=== PATIENT | female | born 1975 | race Caucasian/White ===

== ENCOUNTER 2016-07-13 05:45 | Emergency (ER) | payer OTHER, MEDICAID ==
[~2016-07-13] VITALS: Ht 167.6 cm; Wt 62.6 kg
[~2016-07-13 05:45] MED LIST: CITA40TA22 PO; IBUP-1480 PO; MULT-634 PO; NAPR250T PO; NORCO5 PO; OMEP40CA PO; TRAM50TA92 PO; ZOLM2.5T7 PO
[2016-07-13 05:59] VITALS: BP 145/56; PULSE 90; RESP 18; TEMP 98.6; O2SAT 97
[2016-07-13] MEDS ORDERED: traMADol HCL HCL 50 MG TABLET (ULTRAM) PO ONE (06:30)
[2016-07-13 06:43] VITALS: BP 138/67; PULSE 87; RESP 18; TEMP 98.6; O2SAT 97
== END 2016-07-13 06:43 | disposition home or self-care (01) ==
LOC: SED 05:45
DX: M79.604 Pain in right leg (principal); G89.29 Other chronic pain; G80.9 Cerebral palsy, unspecified; Z88.5 Allergy status to narcotic agent; Z79.899 Other long term (current) drug therapy
CPT/HCPCS: 99283

== ENCOUNTER 2016-08-29 18:14 | Emergency (ER) | payer OTHER, MEDICAID ==
[~2016-08-29] VITALS: Ht 167.6 cm; Wt 64.4 kg
[~2016-08-29 18:14] MED LIST changes: -NAPR250T PO; -NORCO5 PO
[2016-08-29 18:22] VITALS: BP_SYST 99
[2016-08-29] MEDS ORDERED: KETOROLAC TROMETHAMINE 60 MG/2 ML VIAL IM ONE (18:45)
[2016-08-29 18:58] LABS: BASOPHILS # (AUTO) 0.1 K/uL (0.0-0.2); BASOPHILS % (AUTO) 0.8 % (0.0-2.0); EOSINOPHILS # (AUTO) 0.2 K/uL (0.0-0.4); EOSINOPHILS % (AUTO) 2.3 % (0.0-4.0); HEMATOCRIT 37.1 % (36-48); HEMOGLOBIN 12.9 g/dL (12.0-16.0); LYMPHOCYTES # (AUTO) 1.8 K/uL (1.0-5.5); LYMPHOCYTES % (AUTO) 24.9 % (20.5-51.5); MEAN CORPUSCULAR HEMOGLOBIN 31 pg (27-31); MEAN CORPUSCULAR HGB CONC 35 % (32-36); MEAN CORPUSCULAR VOLUME 88 fL (79.0-98.0); MONOCYTES # (AUTO) 0.8 K/uL (0.0-1.0); MONOCYTES % (AUTO) 10.3 % (1.7-9.3); NEUTROPHILS # (AUTO) 4.4 K/uL (1.8-7.7); NEUTROPHILS % (AUTO) 61.7 % (40.0-70.0); PLATELET COUNT (AUTO) 260 K/uL (130-430); RED BLOOD CELL COUNT(AUTO) 4.23 MIL/uL (4.2-6.2); RED CELL DISTRIBUTION WIDTH 11.8 % (9.0-15.0); WHITE BLOOD COUNT (AUTO) 7.4 K/uL (4.8-10.8)
[2016-08-29 19:09] LABS: CREATININE 0.86 mg/dL (0.55-1.30); POTASSIUM 3.6 mmol/L (3.5-5.1)
[2016-08-29 19:09] LABS: BILIRUBIN,URINE NEGATIVE (NEGATIVE); CLARITY/URINE SL CLOUDY (CLEAR); COLOR,URINE YELLOW (YELLOW); GLUCOSE,URINE NEGATIVE (NEGATIVE); KETONES,URINE NEGATIVE (NEGATIVE); LEUKOCYTE ESTERASE ,URINE TRACE (NEGATIVE); NITRITE, URINE POSITIVE (NEGATIVE); PH,URINE 6.5 (5.0-8.0); PROTEIN URINE NEGATIVE (NEGATIVE); UROBILINOGEN,URINE 0.2 (0.2-1.0)
[2016-08-29 19:14] LABS: ALBUMIN 4.6 g/dL (3.4-4.8); TOTAL BILIRUBIN 0.3 mg/dL (0.0-1.0); TOTAL PROTEIN, SERUM 7.7 g/dL (6.4-8.3)
[2016-08-29 19:20] LABS: BLOOD, URINE TRACE (NEGATIVE)
[2016-08-29 19:41] LABS: BACTERIA,URINE MANY /HPF (None Seen); RBC,URINE 0-3 /HPF (0-3)
[2016-08-29 19:42] VITALS: BP_SYST 112
[2016-08-29 19:42] LABS: MUCUS,URINE None Seen /LPF (None Seen)
== END 2016-08-29 19:42 | disposition home or self-care (01) ==
LOC: SED 18:14
DX: K52.9 Noninfective gastroenteritis and colitis, unspecified (principal); N39.0 Urinary tract infection, site not specified; G80.9 Cerebral palsy, unspecified; M19.90 Unspecified osteoarthritis, unspecified site; Z88.5 Allergy status to narcotic agent; Z88.0 Allergy status to penicillin
CPT/HCPCS: 36415; 74176; 80053; 81000; 81025; 85025; 87086; 87186; 96372; 99285; J1885; J7030

== ENCOUNTER 2016-10-06 23:57 | Inpatient (IN) | payer OTHER, MEDICAID ==
[~2016-10-06] VITALS: Ht 167.6 cm; Wt 63.0 kg
[~2016-10-06 23:57] MED LIST changes: +NAPR250T PO; +NORCO5 PO
[2016-10-07] VITALS: BP 127/61; PULSE 138; RESP 14; TEMP 101.4; O2SAT 99
--- NOTE | 2016-10-07 | NUR ---
Patient to ER bed 6 to gown for evaluation. Side rails up. Report given to ALONDRA PADILLA.
--- NOTE | 2016-10-07 00:10 | NUR ---
Patient alert and oriented x 3, BIB ambulance with complaints of body aches and pain x 2 hours and nausea and headache. No diarrhea or vomiting. Pain scale 8/10. Patient also has elevated temp 101.4 degrees Fahrenheit. No acute distress or SOB noted at this time.
--- NOTE | 2016-10-07 00:11 | NUR ---
Cooling measures started. Patient constantly complaining of body ache. Patient has cerebral palsy and needs assistance when turning and or urinating. Will continue to monitor.
--- NOTE | 2016-10-07 00:25 | NUR ---
ER Dr. Parks at bedside examining patient.
[2016-10-07] MEDS ORDERED: NS 1000 ML BAG IV ONE (00:30)
[2016-10-07] MEDS ORDERED: ONDANSETRON HCL 4 MG/2 ML VIAL IVP ONE (00:30)
[2016-10-07] MEDS ORDERED: KETOROLAC TROMETHAMINE 30 MG VIAL IVP ONE (00:30)
[2016-10-07 01:21] LABS: HEMATOCRIT 35.1 % (36-48); HEMOGLOBIN 11.7 g/dL (12.0-16.0); MEAN CORPUSCULAR HEMOGLOBIN 29 pg (27-31); MEAN CORPUSCULAR HGB CONC 33 % (32-36); MEAN CORPUSCULAR VOLUME 86 fL (79.0-98.0); PLATELET COUNT (AUTO) 202 K/uL (130-430); RED BLOOD CELL COUNT(AUTO) 4.06 MIL/uL (4.2-6.2); RED CELL DISTRIBUTION WIDTH 12.1 % (9.0-15.0); WHITE BLOOD COUNT (AUTO) 4.4 K/uL (4.8-10.8)
[2016-10-07 01:23] LABS: BILIRUBIN,URINE NEGATIVE (NEGATIVE); BLOOD, URINE 1+ (NEGATIVE); CLARITY/URINE SL CLOUDY (CLEAR); COLOR,URINE YELLOW (YELLOW); GLUCOSE,URINE NEGATIVE (NEGATIVE); KETONES,URINE NEGATIVE (NEGATIVE); LEUKOCYTE ESTERASE ,URINE TRACE (NEGATIVE); NITRITE, URINE POSITIVE (NEGATIVE); PH,URINE 6.5 (5.0-8.0); PROTEIN URINE NEGATIVE (NEGATIVE); UROBILINOGEN,URINE 0.2 (0.2-1.0)
--- NOTE | 2016-10-07 01:25 | NUR ---
Patient still complaining of headache and body pain. Temp still elevated at 101 degrees Fahrenheit. Heart rate elevated at 125. No acute distress or sOB noted. Will continue to monitor.
[2016-10-07] MEDS ORDERED: DIPHENHYDRAMINE INJ 50 MG/ML VIAL IVP ONE (01:30)
[2016-10-07] MEDS ORDERED: MORPHINE 2 MG/ML INJ. SYRINGE IVP ONE (01:30)
[2016-10-07 01:31] LABS: CALCIUM 8.2 mg/dL (8.4-11.0); CREATININE 0.76 mg/dL (0.55-1.30)
[2016-10-07 01:35] LABS: ALBUMIN 3.7 g/dL (3.4-4.8); TOTAL BILIRUBIN 0.5 mg/dL (0.0-1.0); TOTAL PROTEIN, SERUM 6.6 g/dL (6.4-8.3)
[2016-10-07 01:39] LABS: BACTERIA,URINE MANY /HPF (None Seen); MUCUS,URINE None Seen /LPF (None Seen); WBC,URINE 20-50 /HPF (0-3)
[2016-10-07 01:42] LABS: POTASSIUM 2.9 mmol/L (3.5-5.1)
[2016-10-07] MEDS ORDERED: POTASSIUM CHLORIDE 20 MEQ TAB.PRT.SR PO ONE ×2 (01:45→02:45)
[2016-10-07 01:51] LABS: BAND % (MANUAL) 5 % (0-6); BASOPHILS % (MANUAL) 0 % (0-2); EOSINOPHILS % (MANUAL) 1 % (0-7); LYMPHOCYTES % (MANUAL) 9 % (20-46); MONOCYTES % (MANUAL) 2 % (0-11)
[2016-10-07] MEDS ORDERED: LEVOFLOXACIN 500 MG/D5W 100 ML IV ONE (02:15)
[2016-10-07] MEDS ORDERED: ACETAMINOPHEN 325 MG TABLET PO ONE (02:15)
[2016-10-07] MEDS ORDERED: NAPR-690 PO (02:50)
[2016-10-07] MEDS ORDERED: CHOL50004 PO (02:51)
[2016-10-07] MEDS ORDERED: ONDANSETRON 4 MG ODT TAB PO ONE (03:00)
[2016-10-07] MEDS: KCL 20 mEq in NS 1000 mL 1,000 ML IV SCH ×2 (03:00→14:28)
[2016-10-07] MEDS ORDERED: POTASSIUM CHLORIDE 30 MEQ in NS 250 ML IV ONE (03:00)
[2016-10-07] MEDS ORDERED: ONDANSETRON HCL 4 MG/2 ML VIAL IVP PRN (03:00)
--- NOTE | 2016-10-07 03:05 | NUR ---
Patient will be admitted under the care of Dr. Rosa. Admitted to telemetry unit. Will go to room 125A. Belongings list completed. Summary report printed. Report will be given at bedside. 0316 Patient was transported to telemetry unit by 2 RNs via gurney without incident. Patient was in no acute distress or SOB upon transfer. Report given to ALONDRA Goodwin.
--- NOTE | 2016-10-07 03:19 | NUR ---
ADMIT NOTE Received pt from ER to the floor with a diagnosis of Sepsis, UTI. Admission process initiated. patient oriented to pain management, safety and call light-teach back done.
[2016-10-07 03:26] VITALS: BP 108/65; PULSE 128; RESP 18; TEMP 98.6; O2SAT 98
--- NOTE | 2016-10-07 03:30 | NUR ---
INITIAL NOTE PT. RECEIVED FROM ADMISSION NURSE, LORRIE, NO S/S OF SOB OR DISTRESS. PT. COMPLAINS OF HEAD AND ABDOMINAL PAIN AT THIS TIME. WILL ASSIST PT. TO A COMFORTABLE POSITION IN BED AND ADMINISTER NEXT DOSE OF PAIN MEDICATION WHEN DUE. PT. ALSO STATES SHE IS NAUSEOUS AT THIS TIME. WILL GIVE PT. SEVEN UP PER HER REQUEST AND ADMINISTER NEXT DOSE OF ZOFRAN ONCE AVAILABLE. WILL INITIATE IV FLUIDS ONCE AVAILABLE. IV ACCESS SITE HAS NO SIGNS OF INFILTRATION. PLAN OF CARE HAS BEEN DISCUSSED, PT. VERBALIZES UNDERSTANDING. WILL CONTINUE TO MONITOR FOR CHANGES AND MAKE PT. COMFORTABLE POSSIBLE. SAFETY AND FALL PRECAUTIONS IN PLACE, CALL LIGHT IN REACH, BED ALARM ON.
[2016-10-07] MEDS ORDERED: KCL 20 mEq in 100 mL (PREMIX) 100 ML IV ONE ×2 (04:42→04:46)
--- NOTE | 2016-10-07 05:08 | NUR ---
ROUNDS PT. RESTING IN BED. COMPLAINS OF NAUSEA AND PAIN. MEDICATIONS ARE NOT YET DUE FOR PRN DOSE. PT. GIVEN 7 UP, AND DRINKING TO HELP WITH NAUSEA. PROVIDED WITH A PILLOW PER PT. REQUEST. IV FLUIDS AND K LIZZ ARE NOW INFUSING WELL ORDERED. WILL CONT. TO MONITOR FOR CHANGES. SAFETY AND FALL PRECAUTIONS IN PLACE. CALL LIGHT IN REACH.
[2016-10-07] MEDS: MORPHINE 2 MG/ML INJ. SYRINGE IVP PRN ×2 (05:56→16:13)
--- NOTE | 2016-10-07 06:40 | NUR ---
CLOSING NOTE PT. RESTING IN BED WITH EYES CLOSED. CHEST RISE AND FALL NOTED. MORPHINE WAS GIVEN FOR PAIN ORDERED. PT. HAS NO FACIAL GRIMACING FOR PAIN AT THIS TIME. ALL NECESSARY NEEDS WERE MET. SAFETY AND FALL PRECAUTIONS WERE MAINTAINED. IV FLUIDS AND K LIZZ INFUSING WELL ORDERED. WILL ENDORSE CARE TO AM NURSE. CALL LIGHT IN REACH, BED IN LOWEST LOCKED POSITION.
[2016-10-07] MEDS ORDERED: ACETAMINOPHEN 325 MG TABLET PO PRN (07:45)
[2016-10-07 08:00] VITALS: BP 99/59; PULSE 111; RESP 17; TEMP 98.4; O2SAT 98
--- NOTE | 2016-10-07 08:00 | NUR ---
OPENING NOTE: RECEIVED REPORT FROM NIGHT NURSE. PATIENT IS RESTING COMFORTABLY IN BED. NO S/S OF DISTRESS OR SOB. PATIENT IS AWAKE AND ALERT. VITAL SIGNS WNL, ASSESSMENT COMPLETE. FAMILY AT BEDSIDE. CALL LIGHT IN REACH, BED IN LOWEST POSITION, AND WILL CONTINUE TO MONITOR.
--- NOTE | 2016-10-07 10:00 | NUR ---
NOTE: PATIENT IS RESTING COMFORTABLY IN BED. NO S/S OF DISTRESS OR SOB. PATIENT IS AWAKE AND ALERT, ABLE TO EXPRESS NEEDS, AND ASK FOR ASSISTANCE. CALL LIGHT IN REACH, BED IN LOWEST POSITION, AND WILL CONTINUE TO MONITOR.
[2016-10-07] MEDS: OMEPRAZOLE 20 MG CAPSULE.DR (PriLOSEC) PO SCH (10:13)
[2016-10-07] MEDS ORDERED: FIORCET PO PRN (11:30)
[2016-10-07 11:59] VITALS: BP 97/57; PULSE 108; RESP 16; TEMP 97.6; O2SAT 97
--- NOTE | 2016-10-07 12:00 | NUR ---
NOTE: PATIENT IS RESTING COMFORTABLY IN BED. NO S/S OF DISTRESS OR SOB. PATIENT IS AWAKE AND ALERT, ABLE TO EXPRESS NEEDS, AND ASK FOR ASSISTANCE. FAMILY AT BEDSIDE. CALL LIGHT IN REACH, BED IN LOWEST POSITION, AND WILL CONTINUE TO MONITOR.
[2016-10-07 12:06] VITALS: Ht 167.6 cm; Wt 63.0 kg
[2016-10-07] MEDS ORDERED: NAPROXEN 250 MG TABLET PO ONE (13:00)
--- NOTE | 2016-10-07 13:28 | NUR ---
CRITICAL RESULTS BLOOD CULTURE POSITIVE FOR GRAM NEGATIVE RODS. DR. PAYTON MADE AWARE AND SHE PUT IN SOME ORDERS.
[2016-10-07] MEDS ORDERED: GENTAMICIN 80 mg/100 mL NS 100 ML IV ONE (13:30)
[2016-10-07 13:47] LABS: BASOPHILS # (AUTO) 0.1 K/uL (0.0-0.2); BASOPHILS % (AUTO) 0.4 % (0.0-2.0); EOSINOPHILS % (AUTO) 0.1 % (0.0-4.0); HEMATOCRIT 32.7 % (36-48); HEMOGLOBIN 10.7 g/dL (12.0-16.0); LYMPHOCYTES # (AUTO) 0.4 K/uL (1.0-5.5); LYMPHOCYTES % (AUTO) 2.1 % (20.5-51.5); MEAN CORPUSCULAR HEMOGLOBIN 29 pg (27-31); MEAN CORPUSCULAR HGB CONC 33 % (32-36); MEAN CORPUSCULAR VOLUME 87 fL (79.0-98.0); MONOCYTES # (AUTO) 0.3 K/uL (0.0-1.0); MONOCYTES % (AUTO) 1.5 % (1.7-9.3); NEUTROPHILS # (AUTO) 18.4 K/uL (1.8-7.7); NEUTROPHILS % (AUTO) 95.9 % (40.0-70.0); PLATELET COUNT (AUTO) 192 K/uL (130-430); RED BLOOD CELL COUNT(AUTO) 3.74 MIL/uL (4.2-6.2); RED CELL DISTRIBUTION WIDTH 12.2 % (9.0-15.0); WHITE BLOOD COUNT (AUTO) 19.2 K/uL (4.8-10.8)
[2016-10-07 13:56] LABS: CALCIUM 7.6 mg/dL (8.4-11.0); CREATININE 1.11 mg/dL (0.55-1.30); POTASSIUM 3.8 mmol/L (3.5-5.1)
--- NOTE | 2016-10-07 14:11 | NUR ---
CONSULT ID GN SEPTICEMIA DR KINGSLEY [phone] S/W [facility] OFFICE @ [id number]
[2016-10-07] MEDS: traMADol HCL HCL 50 MG TABLET (ULTRAM) PO SCH ×2 (14:27→20:38)
--- NOTE | 2016-10-07 16:00 | NUR ---
NOTE: PATIENT IS RESTING COMFORTABLY IN BED. NO S/S OF DISTRESS OR SOB. PATIENT IS AWAKE AND ALERT, ABLE TO EXPRESS NEEDS, AND ASK FOR ASSISTANCE. FAMILY AT BEDSIDE. PATIENT HAS HAD HEADACHE ALL DAY WITH LITTLE RELIEF. CALL LIGHT IN REACH, BED IN LOWEST POSITION, AND WILL CONTINUE TO MONITOR.
[2016-10-07 16:47] VITALS: BP 100/58; PULSE 102; RESP 17; TEMP 97.9; O2SAT 97
[2016-10-07] MEDS: FIORCET PO PRN (18:17)
--- NOTE | 2016-10-07 18:33 | NUR ---
CLOSING NOTE: PATIENT IS RESTING COMFORTABLY IN BED. NO S/S OF DISTRESS OR SOB. PATIENT IS AWAKE AND ALERT, ABLE TO EXPRESS NEEDS, AND ASK FOR ASSISTANCE. CALL LIGHT IN REACH, BED IN LOWEST POSITION, AND WILL GIVE REPORT TO NIGHT NURSE.
[2016-10-07 19:39] VITALS: BP 109/66; PULSE 66; RESP 18; TEMP 99.1; O2SAT 99
--- NOTE | 2016-10-07 19:45 | NUR ---
INITIAL NOTE SEEN PT SITTING UP IN BED, A/A/O X3, NO S/S OF SOB OR DISTRESS NOTED. VITAL SIGNS STABLE, AFEBRILE. IV TO THE RT HAND WITH ORDERED IVF INFUSING WELL. IV GAUGE 20. NO SIGNS OR SYMPTOMS OF INFECTION NOTED ON IV SITE. PLAN OF CARE HAS DISCUSSED WITH PT. VERBALIZES UNDERSTANDING. DENIES ANY PAIN AT THIS TIME. INSTRUCTED PT ON THE USE OF CALL LIGHT TO CALL FOR ANY NEED TO ASSIST. PT VERBALIZED UNDERSTANDING. BED LOCKED AND IN LOW POSITION, BED ALARM ON, SIDE RAILS UP X3. CALL LIGHT WITHIN REACH. WILL CONTINUE TO MONITOR FOR ANY CHANGES..
[2016-10-07] MEDS: NAPROXEN 250 MG TABLET PO SCH (20:39)
--- NOTE | 2016-10-07 20:43 | NUR ---
NOTES; SCHEDULED PO MEDICATION ADMINISTERED. PT TOLERATED MEDS WELL. WILL CONTINUE TO MONITOR.
[2016-10-07] MEDS ORDERED: NAPROXEN 250 MG TABLET PO SCH (21:00)
--- NOTE | 2016-10-07 22:30 | NUR ---
NOTES; AT BEDSIDE VISITING. NO APPARENT DISTRESS NOTED; DENIES ANY PAIN AT THIS TIME. SAFETY MEASURES IN PROGRESS.
[2016-10-07] MEDS: LEVOFLOXACIN 500 MG/D5W 100 ML IV SCH (22:56)
--- NOTE | 2016-10-07 23:10 | NUR ---
NOTES; ASSISTED PT TO THE BATH ROOM. PT VOIDED FREELY. ASSISTED BACK TO BED. GAIT UNSTEADY. REMINDED PT TO USE CALL LIGHT TO CALL FOR ANY NEED TO ASSIST. PT VERBALIZED UNDERSTANDING. SAFETY MEASURES IN PROGRESS.
--- NOTE | 2016-10-08 00:30 | NUR ---
NOTES; PT IS AWAKE, WATCHING MOVIE ON HER !PAD. NO APPARENT DISTRESS NOTED. SAFETY MEASURES IN PROGRESS. AT BEDSIDE WITH GOOD SUPPORT.
[2016-10-08 00:33] VITALS: BP 100/60; PULSE 73; RESP 20; TEMP 98.4; O2SAT 94
--- NOTE | 2016-10-08 00:33 | NUR ---
MEDICATION; PT ID BAND SCANNED, SCHEDULED MEDS SCANNED AND ADMINISTERED TO PT. LATER REALIZED MEDS SCANNED WAS NOT ENTERED. Addendum: 10/09/16 at 0035 by Doris Humphrey LVN WRONG TIME ENTRY
[2016-10-08] MEDS: KCL 20 mEq in NS 1000 mL 1,000 ML IV SCH ×3 (02:08→22:00)
[2016-10-08] MEDS: FIORCET PO PRN (02:36)
--- NOTE | 2016-10-08 02:38 | NUR ---
NOTES; FIORICET 2 TABS PO ADMINISTERED FOR 7/10 SEVERE HEADACHE.
--- NOTE | 2016-10-08 03:36 | NUR ---
NOTES; DENIES ANY PAIN AT THIS TIME. PT STATED EFFECTIVE PAIN MEDICATION. AT BEDSIDE WITH GOOD SUPPORT.
--- NOTE | 2016-10-08 05:00 | NUR ---
NOTES; ASSISTED PT TO THE BATHROOM. PT VOIDED FREELY. ASSISTED BACK TO BED. GAIT UNSTEADY. REMINDED PT TO USE CALL LIGHT TO CALL FOR ANY NEED TO ASSIST. PT VERBALIZED UNDERSTANDING. SAFETY MEASURES IN PROGRESS.
[2016-10-08 05:59] VITALS: BP 101/63; PULSE 70; RESP 18; TEMP 97.9; O2SAT 94
[2016-10-08 06:50] LABS: CALCIUM 7.9 mg/dL (8.4-11.0); CREATININE 0.69 mg/dL (0.55-1.30); POTASSIUM 4.2 mmol/L (3.5-5.1)
--- NOTE | 2016-10-08 06:52 | NUR ---
NOTES; RESTING QUIETLY, EASILY AROUSED. NO ACUTE DISTRESS NOTED. DENIES ANY PAIN AT THIS TIME. ALL NEEDS ATTENDED. SAFETY MEASURES MAINTAINED.
[2016-10-08 06:57] LABS: BASOPHILS % (AUTO) 0.2 % (0.0-2.0); EOSINOPHILS # (AUTO) 0.1 K/uL (0.0-0.4); EOSINOPHILS % (AUTO) 0.8 % (0.0-4.0); HEMATOCRIT 32.1 % (36-48); HEMOGLOBIN 10.7 g/dL (12.0-16.0); LYMPHOCYTES # (AUTO) 0.6 K/uL (1.0-5.5); LYMPHOCYTES % (AUTO) 5.2 % (20.5-51.5); MEAN CORPUSCULAR HEMOGLOBIN 29 pg (27-31); MEAN CORPUSCULAR HGB CONC 33 % (32-36); MEAN CORPUSCULAR VOLUME 88 fL (79.0-98.0); MONOCYTES # (AUTO) 0.6 K/uL (0.0-1.0); NEUTROPHILS # (AUTO) 10.2 K/uL (1.8-7.7); NEUTROPHILS % (AUTO) 88.8 % (40.0-70.0); PLATELET COUNT (AUTO) 166 K/uL (130-430); RED BLOOD CELL COUNT(AUTO) 3.65 MIL/uL (4.2-6.2); RED CELL DISTRIBUTION WIDTH 12.4 % (9.0-15.0)
[2016-10-08 07:02] LABS: WHITE BLOOD COUNT (AUTO) 11.6 K/uL (4.8-10.8)
--- NOTE | 2016-10-08 07:28 | NUR ---
HANDOFF REPORT WITH NOC NURSE. PATIENT NEEDS FREQUENT ASSIST TO TOILET AND RETURN TO BED. WILL DISCUSS WITH METAL FITTER FOR DAY SHIFT.
--- NOTE | 2016-10-08 09:20 | NUR ---
Patient continues to sleep through this rounds. Was also sleeping on handoff rounds.
--- NOTE | 2016-10-08 10:29 | NUR ---
Rounds to patient . Sleeping at this time.
[2016-10-08 11:15] VITALS: BP 90/60; PULSE 69; RESP 16; TEMP 97.3; O2SAT 99
[2016-10-08] MEDS: OMEPRAZOLE 20 MG CAPSULE.DR (PriLOSEC) PO SCH (11:38)
[2016-10-08] MEDS: NAPROXEN 250 MG TABLET PO SCH ×3 (11:38→21:40)
[2016-10-08] MEDS: traMADol HCL HCL 50 MG TABLET (ULTRAM) PO SCH ×4 (11:39→21:40)
--- NOTE | 2016-10-08 12:26 | NUR ---
ROUNDS TO PATIENT. ASSIST TO AND FROM BATHROOM. DAUGHTER AT BEDSIDE. SPOUSE DEPARTED.
[2016-10-08] MEDS ORDERED: KETOROLAC TROMETHAMINE 15 MG VIAL IVP ONE (14:30)
--- NOTE | 2016-10-08 14:34 | NUR ---
Rounds to patient. Request for something for headache. When carl brought, pt md at bedside says it is not working. She stopped med. Wasted med with charge nurse. Pending toradol order from MD. MD also request verify antibiotic.
--- NOTE | 2016-10-08 14:36 | NUR ---
given update on antibiotic gentamycin given 10/07 at 1427 by Yasmine Rock.
[2016-10-08 16:04] VITALS: BP 99/63; PULSE 78; RESP 20; TEMP 98.3; O2SAT 97
--- NOTE | 2016-10-08 16:51 | NUR ---
Patient talking on cell phone. Request for additional pain meds. Will monitor.
[2016-10-08 19:50] VITALS: BP 109/65; PULSE 76; RESP 18; TEMP 96.9; O2SAT 99
--- NOTE | 2016-10-08 20:00 | NUR ---
NOTES; SEEN PT SITTING UP IN BED, ON HER CELL PHONE. A/A/O X4, NO S/S OF SOB OR DISTRESS NOTED. VITAL SIGNS STABLE, AFEBRILE. PT C/O IV SITE HURTING. NEW IV TO BE RESTARTED. NO PLAN OF CARE HAS DISCUSSED WITH PT. VERBALIZES UNDERSTANDING. DENIES ANY PAIN AT THIS TIME. INSTRUCTED PT ON THE USE OF CALL LIGHT TO CALL FOR ANY NEED TO ASSIST. PT VERBALIZED UNDERSTANDING. BED LOCKED AND IN LOW POSITION, BED ALARM ON, SIDE RAILS UP X3. CALL LIGHT WITHIN REACH. WILL CONTINUE TO MONITOR FOR ANY CHANGES..
--- NOTE | 2016-10-08 20:10 | NUR ---
NOTES; ASSISTED PT TO THE BATHROOM, VOIDED FREELY. PT HAD X1 BM ALSO. PT STATED SHE HAD JUST STARTED HER MENSES. DISPOSABLE UNDERWEAR AND SANITARY PAD PROVIDED. ASSISTANCE ASSISTANCE WITH SANITARY PADS OFFERED DUE TO PT HX OF CEREBRAL PALSY WITH UNSTEADY HAND AND GAIT. PT REFUSED ASSISTANCE. ASSISTED BACK TO BED. SAFETY MEASURES IN PROGRESS. WILL CONTINUE TO MONITOR.
--- NOTE | 2016-10-08 20:15 | NUR ---
NOTES; RESTARTED NEW IV ON THE RT FOREARM, GAUGE 22. ORDERED IVF RESUMED. PT TOLERATED IV INSERTION WELL. OLD IV REMOVED WITH CATHETER TIP INTACT. DRESSING APPLIED.
[2016-10-08] MEDS: LACTOBACILLUS RHAMNOSUS GG 1 CAP CAPSULE PO SCH ×2 (21:00→21:40)
[2016-10-08] MEDS: LEVOFLOXACIN 500 MG/D5W 100 ML IV SCH (21:55)
[2016-10-08] MEDS: GENTAMICIN SULFATE 400 MG in NS 100 ML IV SCH (21:56)
--- NOTE | 2016-10-08 22:30 | NUR ---
NOTES; OT C/O NEW IV SITE HURTING. PT REQUESTING IV TO BE REMOVED. NO REDNESS NOTED ON IV SITE. RESTARTED NEW IV ON THE RT FOREARM,. GAUGE 22. ORDERED IVF RESUMED. OLD IV ON THE RT FOREARM REMOVED WITH CATHETER TIP INTACT. DRESSING APPLIED. NO BLEEDING NOTED. SAFETY MEASURES IN PROGRESS.
[2016-10-09] VITALS: BP 112/70; PULSE 72; RESP 17; TEMP 97.2; O2SAT 99
[2016-10-09] MEDS: FIORCET PO PRN ×2 (00:22→13:52)
--- NOTE | 2016-10-09 00:25 | NUR ---
NOTES; FIORICET 2TABS PO ADMINISTERED FOR 8 HEADACHE. WILL CONTINUE TO MONITOR.
--- NOTE | 2016-10-09 00:35 | NUR ---
MEDICATION; PT ID BAND SCANNED, SCHEDULED MEDS SCANNED AND ADMINISTERED TO PT. LATER REALIZED MEDS SCANNED WAS NOT ENTERED.
--- NOTE | 2016-10-09 01:22 | NUR ---
NOTES; PT STATED EFFECTIVE PAIN MEDICATION. SAFETY MEASURES IN PROGRESS.
[2016-10-09 04:00] VITALS: BP 119/75; PULSE 62; RESP 18; TEMP 97.2; O2SAT 100
--- NOTE | 2016-10-09 04:00 | NUR ---
NOTES; RESTING QUIETLY, EASILY AROUSED. NO ACUTE DISTRESS NOTED. DENIES ANY PAIN AT THIS TIME. ALL NEEDS ATTENDED. SAFETY MEASURES MAINTAINED.
--- NOTE | 2016-10-09 06:00 | NUR ---
NOTES; RESTING QUIETLY, EASILY AROUSED. NO ACUTE DISTRESS NOTED. DENIES ANY PAIN AT THIS TIME. ALL NEEDS ATTENDED. SAFETY MEASURES MAINTAINED.
[2016-10-09 06:28] LABS: CALCIUM 8.1 mg/dL (8.4-11.0); CREATININE 0.81 mg/dL (0.55-1.30)
[2016-10-09 06:31] LABS: EOSINOPHILS # (AUTO) 0.2 K/uL (0.0-0.4); LYMPHOCYTES # (AUTO) 1.1 K/uL (1.0-5.5); LYMPHOCYTES % (AUTO) 12.7 % (20.5-51.5)
[2016-10-09 06:42] LABS: BASOPHILS % (AUTO) 0.4 % (0.0-2.0); EOSINOPHILS % (AUTO) 1.9 % (0.0-4.0); HEMATOCRIT 32.7 % (36-48); HEMOGLOBIN 10.8 g/dL (12.0-16.0); MEAN CORPUSCULAR HEMOGLOBIN 29 pg (27-31); MEAN CORPUSCULAR HGB CONC 33 % (32-36); MEAN CORPUSCULAR VOLUME 89 fL (79.0-98.0); MONOCYTES # (AUTO) 0.8 K/uL (0.0-1.0); MONOCYTES % (AUTO) 8.9 % (1.7-9.3); NEUTROPHILS # (AUTO) 6.7 K/uL (1.8-7.7); NEUTROPHILS % (AUTO) 76.1 % (40.0-70.0); PLATELET COUNT (AUTO) 152 K/uL (130-430); RED BLOOD CELL COUNT(AUTO) 3.68 MIL/uL (4.2-6.2); WHITE BLOOD COUNT (AUTO) 8.8 K/uL (4.8-10.8)
--- NOTE | 2016-10-09 08:00 | NUR ---
AM Initial Notes Pt aaox4 with cerebral palsy. No complaints of pain or discomfort. No sob, difficulty breathing or distress noted. playground monitor in place. Pt on bedrest but may get up for BRP with assist. Weak gait noted. Educated about fall and safety precautions. Encouraged to call for assistance. Call light within reach. Will monitor.
[2016-10-09] MEDS: NAPROXEN 250 MG TABLET PO SCH ×2 (09:22→20:08)
[2016-10-09] MEDS: LACTOBACILLUS RHAMNOSUS GG 1 CAP CAPSULE PO SCH ×2 (09:22→20:09)
[2016-10-09] MEDS: OMEPRAZOLE 20 MG CAPSULE.DR (PriLOSEC) PO SCH (09:22)
[2016-10-09] MEDS: traMADol HCL HCL 50 MG TABLET (ULTRAM) PO SCH ×3 (09:22→20:08)
--- NOTE | 2016-10-09 09:40 | NUR ---
Physical Therapy Pt ambulating in hallway with therapist. Weak and unsteady gait noted.
--- NOTE | 2016-10-09 10:20 | NUR ---
Rounds Pt asleep but easily awakened. Mild pain noted but feels comfortable. No distress noted. Encouraged to call for assistance. Call light within reach. inside room. Will monitor.
[2016-10-09] MEDS: KCL 20 mEq in NS 1000 mL 1,000 ML IV SCH ×2 (11:04→20:08)
[2016-10-09 12:05] VITALS: BP 116/71; PULSE 63; RESP 17; TEMP 97.7; O2SAT 97
--- NOTE | 2016-10-09 12:35 | NUR ---
Rounds Pt eating lunch. No significant changes noted. Kept comfortable. Encouraged to call for assistance.
--- NOTE | 2016-10-09 13:54 | NUR ---
Headache Pt complaints of headache 12/20. Medicated with Fioricet 2 tabs. Kept comfortable. Educated about fall and safety precautions due to medication administered. Bed alarm armed. Pt verbalized understanding.
--- NOTE | 2016-10-09 14:30 | NUR ---
Dr. Shelley RAE doing rounds. Plan of care discussed.
--- NOTE | 2016-10-09 14:57 | NUR ---
Neuro Consult: Dr Dunne Consult was called, BERNARDA PETERSON persistent headache
--- NOTE | 2016-10-09 14:59 | NUR ---
Rounds Pt awake complaints of headache never completely went away. Dr. Rosa aware of headache. Medicated with scheduled 1500 Ultram. Will monitor.
--- NOTE | 2016-10-09 15:06 | NUR ---
Additional note Educated patient about fall and safety. Encouraged to call for assistance. Bed alarm armed.
--- NOTE | 2016-10-09 15:19 | NUR ---
Radiology Pt left floor via w/c to radiology department for CT scan of head/brain. No distress noted.
--- NOTE | 2016-10-09 16:19 | NUR ---
Rounds Pt asleep. No signs of facial grimacing for pain or discomfort. No distress noted. Call light within reach. will monitor.
[2016-10-09 16:40] VITALS: BP 117/73; PULSE 64; RESP 18; TEMP 96.3; O2SAT 100
--- NOTE | 2016-10-09 18:30 | NUR ---
Closing notes Pt awake resting in bed finishing up with her dinner. Complaints of mild headache but feels comfortable at this time. No distress noted. Encouraged to call for assistance. Will endorse care to incoming nurse.
--- NOTE | 2016-10-09 20:00 | NUR ---
Initial Notes Patient alert and oriented, able to make needs known. Patient denies pain at this time. No SOB noted, room air. No s/s of nausea/vomiting at this time. IV site patent, flushes well, infusing fluids as ordered. Goal of pain management, stability and safety this shift. Call light within reach. Will continue to monitor.
[2016-10-09] MEDS: LEVOFLOXACIN 500 MG/D5W 100 ML IV SCH (20:08)
[2016-10-09 20:12] VITALS: BP 111/72; PULSE 78; RESP 18; TEMP 96.6; O2SAT 97
[2016-10-09] MEDS: GENTAMICIN SULFATE 400 MG in NS 100 ML IV SCH (21:47)
--- NOTE | 2016-10-09 22:20 | NUR ---
Notes Patient resting in bed, recently had a shower. Denies pain at this time. No SOB noted. IV site patent, flushes well, infusing fluids as ordered. Call light within reach. Will continue to monitor.
[2016-10-10] VITALS (7 sets, daily range): BP systolic 108–124; BP diastolic 64–73; PULSE 64–78; RESP 15–18; TEMP 97–98; O2SAT 98–100
--- NOTE | 2016-10-10 00:05 | NUR ---
Notes Patient sleeping at this time. Recently medicated with pain medicine. Afebrile. IV site patent, flushes well, infusing fluids as ordered. Safety precautions maintained. Call light within reach. Will continue to monitor.
[2016-10-10] MEDS: FIORCET PO PRN (01:49)
--- NOTE | 2016-10-10 02:10 | NUR ---
Notes Patient resting in bed. Denies pain at this time. No SOB noted. IV site patent, flushes well, infusing fluids as ordered. Call light within reach. Will continue to monitor.
[2016-10-10] MEDS: MORPHINE 2 MG/ML INJ. SYRINGE IVP PRN ×2 (03:17→10:36)
--- NOTE | 2016-10-10 04:05 | NUR ---
Notes Patient sleeping at this time. Afebrile. IV site patent, flushes well, infusing fluids as ordered. Safety precautions maintained. Call light within reach. Will continue to monitor.
--- NOTE | 2016-10-10 06:38 | NUR ---
Closing Notes Patient denies pain at this time. No SOB noted, room air. No s/s of nausea/vomiting at this time. IV site patent, flushes well, infusing fluids as ordered. Goal of pain management, stability and safety met. Call light within reach. Will continue to monitor.
--- NOTE | 2016-10-10 07:23 | NUR ---
MADE A FOLLOW UP CONSULT TO THE NEUROLOGIST, DR HOLGUIN, RE: PERSISTENT SNEED. SPOKE TO MATT
--- NOTE | 2016-10-10 08:00 | NUR ---
AM Initial Notes Pt aaox4 with history of cerebral palsy. Complaints of pain and discomfort to right lower back. No sob, difficulty breathing or distress noted. nitro worker in place. IV to right forearm #22g patient with IV fluid infusing. Educated about fall and safety precautions. Bed alarm armed. Encouraged to call for assistance. Call light within reach. Will monitor.
[2016-10-10] MEDS: traMADol HCL HCL 50 MG TABLET (ULTRAM) PO SCH ×2 (08:20→15:47)
[2016-10-10] MEDS: LACTOBACILLUS RHAMNOSUS GG 1 CAP CAPSULE PO SCH (08:20)
[2016-10-10] MEDS: OMEPRAZOLE 20 MG CAPSULE.DR (PriLOSEC) PO SCH (08:20)
[2016-10-10] MEDS: NAPROXEN 250 MG TABLET PO SCH (08:21)
--- NOTE | 2016-10-10 10:30 | NUR ---
Back Pain Pt complaints of back pain 9/10 after ambulating. Informed RN for medication administration.
[2016-10-10] MEDS: KCL 20 mEq in NS 1000 mL 1,000 ML IV SCH (10:36)
--- NOTE | 2016-10-10 10:46 | NUR ---
Education Pt medicated with Morphine 2mg IVP for pain. Re-educated patient about fall and safety. Bed alarm armed and with 3 rails up. Encouraged to call for assistance. Call light within reach.
--- NOTE | 2016-10-10 11:45 | NUR ---
Rounds Pt asleep. No signs of facial grimacing for pain or discomfort. No distress noted. Call light within reach. Bed alarm armed. Will monitor.
--- NOTE | 2016-10-10 12:10 | NUR ---
Dr. Shelley RAE doing rounds. Plan of care discussed.
--- NOTE | 2016-10-10 14:30 | NUR ---
Rounds Pt asleep. No significant changes noted. Call light within reach. Bed alarm armed with three side rails up. Will monitor.
--- NOTE | 2016-10-10 15:52 | NUR ---
Rounds Assisted patient to restroom for BRP. Returned to bed and kept comfortable. Re-educated about fall and safety precautions. Medicated with scheduled Ultram.
[2016-10-10] MEDS ORDERED: LEVO500T20 PO (16:11)
--- NOTE | 2016-10-10 16:55 | NUR ---
Rounds Pt asleep. No significant changes noted. Will monitor.
--- NOTE | 2016-10-10 17:50 | NUR ---
Discharge Discharge patient with . Transitional care instructions, handout and prescription for Levaquin explained and given. Verbalized understanding. D/C IV and dressing applied. Vital signs stable. Pt left floor via w/c to private vehicle. No distress noted.
== END 2016-10-10 17:50 | disposition home or self-care (01) | DRG 872 ==
LOC: SED 23:57 → STU 10-07 02:55 → SMU 10-09 15:22
PROVIDERS: ADMIT Internal Medicine; ATTEND Internal Medicine
DX: A41.50 Gram-negative sepsis, unspecified (principal); N12 Tubulo-interstitial nephritis, not specified as acute or chronic; E87.6 Hypokalemia; G80.9 Cerebral palsy, unspecified; G89.4 Chronic pain syndrome; G43.829 Menstrual migraine, not intractable, without status migrainosus; B96.20 Unspecified Escherichia coli [E. coli] as the cause of diseases classified elsewhere; Z88.6 Allergy status to analgesic agent; Z88.0 Allergy status to penicillin
CPT/HCPCS: 36415; 70450-TC; 71010; 76770; 80048; 80053; 80170-TC; 81000-TC; 83605; 83735-TC; 85007; 85025; 85027; 87040-TC; 87086; 87186-TC; 93005; 96361; 96365; 96374; 96375; 97116-GP; 99285; J1200; J1580; J1885; J1956; J2270; J2405; J3480; J7030; J7050; Q0162

== ENCOUNTER 2016-11-01 16:42 | Emergency (ER) | payer OTHER, MEDICAID ==
[2016-10-07 12:06] VITALS: Ht 167.6 cm; Wt 61.2 kg
[~2016-11-01] VITALS: Ht 167.6 cm; Wt 61.2 kg
[~2016-11-01 16:42] MED LIST changes: +CHOL50004 PO; +LEVO500T20 PO; +NAPR-690 PO
[2016-11-01 16:44] VITALS: BP 116/78; PULSE 107; RESP 18; TEMP 98.3; O2SAT 98
--- NOTE | 2016-11-01 16:51 | NUR ---
Patient to ER bed 07 to gown for evaluation. Side rails up. Report given to Yanna
--- NOTE | 2016-11-01 16:55 | NUR ---
Patient is stable accompanied with boyfriend. Patient states that she has a headache, sore throat and stuffy nose since yesterday. Denies any fever. Lungs are clear bilaterally. No other complaints/injuries per patient or as noted.
[2016-11-01] MEDS ORDERED: PREDNISONE 20 MG TABLET PO ONE (17:15)
[2016-11-01] MEDS ORDERED: KETOROLAC TROMETHAMINE 60 MG/2 ML VIAL IM ONE (17:15)
--- NOTE | 2016-11-01 17:16 | NUR ---
JAYLEEN Hdz at bedside
[2016-11-01 17:40] VITALS: BP 112/74; PULSE 82; RESP 18; TEMP 98.3; O2SAT 98
--- NOTE | 2016-11-01 17:40 | NUR ---
Patient given written and verbal discharge instructions and verbalizes understanding. ER MD discussed with patient the results and treatment provided. Patient in stable condition. ID arm band removed. Rx of Tessalon Perles, Motrin, Prednisone, Fluticasone Propionate given. Patient educated on pain management and to follow up with PMD in 48 hours. Pain Scale 3/10 Opportunity for questions provided and answered.
== END 2016-11-01 17:40 | disposition home or self-care (01) ==
LOC: SED 16:42
DX: R51 Headache (principal); R09.81 Nasal congestion; R05 Cough; Z88.5 Allergy status to narcotic agent; Z88.0 Allergy status to penicillin; G80.9 Cerebral palsy, unspecified
CPT/HCPCS: 96372; 99283; J1885; J7512

== ENCOUNTER 2017-01-12 21:40 | Emergency (ER) | payer OTHER, MEDICAID ==
[~2017-01-12] VITALS: Ht 167.6 cm; Wt 62.6 kg
[~2017-01-12 21:40] MED LIST changes: -CITA40TA22 PO; -IBUP-1480 PO; -MULT-634 PO; -NAPR250T PO; -NORCO5 PO; -ZOLM2.5T7 PO
[2017-01-12 22:05] VITALS: BP_SYST 130
[2017-01-13 00:37] VITALS: BP_SYST 132
== END 2017-01-13 00:37 | disposition home or self-care (01) ==
LOC: SED 21:40
DX: L25.9 Unspecified contact dermatitis, unspecified cause (principal); G80.9 Cerebral palsy, unspecified; Z88.5 Allergy status to narcotic agent; Z88.0 Allergy status to penicillin
CPT/HCPCS: 99284

== ENCOUNTER 2018-10-13 20:19 | Emergency (ER) | payer OTHER, MEDICAID ==
[~2018-10-13] VITALS: Ht 167.6 cm; Wt 62.1 kg
[2018-10-13 20:28] VITALS: BP_SYST 132
--- NOTE | 2018-10-13 22:30 | NUR ---
Note christopher in EDM - 10/13/18 at 2308 by SDEDAFJ Pt vrought by self, A&Ox4, pt presents to ER with pain in mouth bump noted inside lower lip, no bleeding, skin pink and warm, cap refill <3.
--- NOTE | 2018-10-13 22:30 | NUR ---
Pt brought by self, A&Ox4, pt presents to ER with pain in mouth bump noted inside lower lip, no bleeding, skin pink and warm, cap refill <3.
--- NOTE | 2018-10-13 22:30 | NUR ---
Patient to ER bed 03 to gown for evaluation. Side rails up.
--- NOTE | 2018-10-13 22:35 | NUR ---
LIBORIO Katz at bedside examining patient.
[2018-10-13] MEDS ORDERED: SULFAMETHOXAZOLE/TRIMETHOPR DS 1 TABLET PO ONE (22:45)
--- NOTE | 2018-10-13 22:58 | NUR ---
2258 - Patient given written and verbal discharge instructions and verbalizes understanding. ER MD discussed with patient the results and treatment provided. Patient in stable condition. ID arm band removed. Rx of bactrim given. Patient educated on pain management and to follow up with PMD. Pain Scale 6. Opportunity for questions provided and answered. Medication side effect fact sheet provided. ambulatory w/ steady gait, A&OX4
[2018-10-13 22:59] VITALS: BP_SYST 132
== END 2018-10-13 22:58 | disposition home or self-care (01) ==
LOC: SED 20:19
DX: S01.551A Open bite of lip, initial encounter (principal); L08.89 Other specified local infections of the skin and subcutaneous tissue; Z88.0 Allergy status to penicillin; Z88.5 Allergy status to narcotic agent; Z79.899 Other long term (current) drug therapy; W50.3XXA Accidental bite by another person, initial encounter; Y93.89 Activity, other specified; Y92.89 Other specified places as the place of occurrence of the external cause; Y99.8 Other external cause status
CPT/HCPCS: 99283

== ENCOUNTER 2018-11-12 14:55 | Inpatient (IN) | payer OTHER, MEDICAID ==
[~2018-11-12] VITALS: Ht 167.6 cm; Wt 64.0 kg
[2018-11-12 15:09] VITALS: BP_SYST 113
[2018-11-12 16:34] LABS: BASOPHILS % (AUTO) 0.5 % (0.0-2.0); EOSINOPHILS # (AUTO) 0.1 K/uL (0.0-0.4); EOSINOPHILS % (AUTO) 2.5 % (0.0-4.0); HEMATOCRIT 36.7 % (36-48); HEMOGLOBIN 12.3 g/dL (12.0-16.0); LYMPHOCYTES # (AUTO) 1.3 K/uL (1.0-5.5); LYMPHOCYTES % (AUTO) 21.6 % (20.5-51.5); MEAN CORPUSCULAR HEMOGLOBIN 29 pg (27-31); MEAN CORPUSCULAR HGB CONC 34 % (32-36); MEAN CORPUSCULAR VOLUME 86 fL (79.0-98.0); MONOCYTES # (AUTO) 0.5 K/uL (0.0-1.0); NEUTROPHILS # (AUTO) 3.9 K/uL (1.8-7.7); NEUTROPHILS % (AUTO) 66.4 % (40.0-70.0); PLATELET COUNT (AUTO) 247 K/uL (130-430); RED BLOOD CELL COUNT(AUTO) 4.29 MIL/uL (4.2-6.2); RED CELL DISTRIBUTION WIDTH 14.4 % (9.0-15.0); WHITE BLOOD COUNT (AUTO) 5.9 K/uL (4.8-10.8)
[2018-11-12 16:37] LABS: CREATININE 0.64 mg/dL (0.55-1.30); POTASSIUM 4.4 mmol/L (3.5-5.1)
--- NOTE | 2018-11-12 16:42 | NUR ---
Patient to ER bed 4 to gown for evaluation. Side rails up. Report given to ALONDRA Villarreal.
--- NOTE | 2018-11-12 16:45 | NUR ---
PT is at bedside with brother. PT has advised that she is feeling general pain throughout her body 03/22. PT is shaking in bed and per PT she has cerebral palsy. PT vitals stable
--- NOTE | 2018-11-12 16:50 | NUR ---
ER YUMIKO Alcantara. at bedside examining patient.
[2018-11-12] MEDS ORDERED: TRAM50TA2 PO (16:52)
[2018-11-12] MEDS ORDERED: ACET-2165 PO (16:52)
[2018-11-12] MEDS ORDERED: ESCI10TA PO (16:52)
[2018-11-12] MEDS ORDERED: OMEP20CA10 PO (16:52)
--- NOTE | 2018-11-12 16:52 | NUR ---
Medication reconciliation completed with information provided by patient's . Any prior medication reconciliation on file was reviewed and corrected.
[2018-11-12 16:57] LABS: ALBUMIN 3.8 g/dL (3.4-4.8); TOTAL BILIRUBIN 0.3 mg/dL (0.0-1.0)
[2018-11-12 17:29] LABS: BILIRUBIN,URINE NEGATIVE (NEGATIVE); CLARITY/URINE CLEAR (CLEAR); COLOR,URINE YELLOW (YELLOW); GLUCOSE,URINE NEGATIVE (NEGATIVE); KETONES,URINE NEGATIVE (NEGATIVE); LEUKOCYTE ESTERASE ,URINE NEGATIVE (NEGATIVE); NITRITE, URINE NEGATIVE (NEGATIVE); PH,URINE 5.5 (5.0-8.0); PROTEIN URINE NEGATIVE (NEGATIVE); UROBILINOGEN,URINE 0.2 (0.2-1.0)
[2018-11-12 17:36] LABS: BLOOD, URINE TRACE (NEGATIVE)
[2018-11-12 17:37] LABS: BACTERIA,URINE FEW /HPF (None Seen); MUCUS,URINE None Seen /LPF (None Seen); RBC,URINE NONE SEEN /HPF (0-3); WBC,URINE 0-3 /HPF (0-3)
[2018-11-12] MEDS ORDERED: KETOROLAC TROMETHAMINE 30 MG VIAL IM ONE (17:45)
--- NOTE | 2018-11-12 17:50 | NUR ---
PT is laying in bed and advised that her pain is 5/10 now. PT is accompanied by her brother. Vital signs stable.
[2018-11-12] MEDS ORDERED: LEVOFLOXACIN 500 MG/D5W 100 ML IV ONE (18:00)
[2018-11-12] MEDS ORDERED: NACL 0.9% 1,000 ML IV ONE (18:00)
--- NOTE | 2018-11-12 19:05 | NUR ---
Pt report received. Pt alert and responsive, denies c/o pain or discomfort at this time. Parents at bedside, no needs verbalized. VSS, NAD.
--- NOTE | 2018-11-12 19:05 | NUR ---
Report given to ALONDRA Lane for continuation of care.
--- NOTE | 2018-11-12 19:15 | NUR ---
Dr. Villanueva at bedside.
--- NOTE | 2018-11-12 19:20 | NUR ---
Dr. Turner at bedside.
[2018-11-12] MEDS ORDERED: ONDANSETRON HCL 4 MG/2 ML VIAL IVP PRN (19:45)
--- NOTE | 2018-11-12 19:48 | NUR ---
Patient will be admitted to care of Dr. Turner. Admitted to Med/Surg unit. Will go to room 121C. Belongings list completed. Summary report printed. Phone report given to ALONDRA Castro.
--- NOTE | 2018-11-12 19:55 | NUR ---
ADMISSION NOTE Received patient from ER via mya, received report from ALONDRA Valente. Patient admitted with diagnosis of UNSTEADY GAIT. Patient oriented to hospital routine, call light, toileting and safety-patient verbalized understanding.
--- NOTE | 2018-11-12 20:00 | NUR ---
ADMIT NOTE Received pt from ER to the floor with a diagnosis of pancreatic ca,renal failure. Admission process initiated. patient oriented to pain management, safety and call light-teach back done. Addendum: 11/12/18 at 2009 by Geovanni Menendez RN disregard this notes, wrong entry for this pt.
[2018-11-12 20:12] VITALS: BP_SYST 131
[2018-11-12] MEDS: DICLOFENAC SODIUM 25 MG TABLET.DR PO SCH (21:37)
[2018-11-12] MEDS: traMADol HCL HCL 50 MG TABLET (ULTRAM) PO SCH (21:37)
--- NOTE | 2018-11-12 21:46 | NUR ---
CONSULTATION PAGED REASON FOR CONSULTATION: Unsteady Gait WAS CONSULT CALLED? Yes PERSON WHO WAS NOTIFIED: Joanna CONSULTING PHYSICIAN: Bala Ramos MOP WORKER PHONE NUMBER: REQUESTING PHYSICIAN: Dr. Turner
--- NOTE | 2018-11-12 22:44 | NUR ---
PAGED FOR DR. MATIAS FOR ORDERS FOR THE PATIENT. I SPOKE WITH
--- NOTE | 2018-11-12 22:50 | NUR ---
Dr. Turner: Spoke with MD over phone, relayed family's request for medication to calm patient down during MRI. Received order for Ativan 1 MG PO Q12H PRN. Order verified via read-back, RN to input order.
[2018-11-12] MEDS: ACETAMINOPHEN 325 MG TABLET PO PRN (23:19)
[2018-11-13 00:43] VITALS: BP_SYST 118
--- NOTE | 2018-11-13 02:16 | NUR ---
Rounds: Patient is asleep, no distress. Respirations are even and unlabored on room air. Call light is with patient, will continue to monitor.
[2018-11-13] MEDS: traMADol HCL HCL 50 MG TABLET (ULTRAM) PO SCH (05:56)
--- NOTE | 2018-11-13 06:05 | NUR ---
Closing note: Patient is awake watching TV. No distress. Respirations are even and unlabored on room air. All needs met. Will endorse to dayshift RN.
[2018-11-13 06:18] LABS: BASOPHILS # (AUTO) 0.1 K/uL (0.0-0.2); BASOPHILS % (AUTO) 0.9 % (0.0-2.0); EOSINOPHILS # (AUTO) 0.2 K/uL (0.0-0.4); EOSINOPHILS % (AUTO) 2.3 % (0.0-4.0); HEMATOCRIT 35.1 % (36-48); HEMOGLOBIN 11.6 g/dL (12.0-16.0); LYMPHOCYTES % (AUTO) 30.7 % (20.5-51.5); MEAN CORPUSCULAR HEMOGLOBIN 28 pg (27-31); MEAN CORPUSCULAR HGB CONC 33 % (32-36); MEAN CORPUSCULAR VOLUME 85 fL (79.0-98.0); MONOCYTES # (AUTO) 0.6 K/uL (0.0-1.0); MONOCYTES % (AUTO) 8.8 % (1.7-9.3); NEUTROPHILS # (AUTO) 3.7 K/uL (1.8-7.7); NEUTROPHILS % (AUTO) 57.3 % (40.0-70.0); PLATELET COUNT (AUTO) 243 K/uL (130-430); RED BLOOD CELL COUNT(AUTO) 4.13 MIL/uL (4.2-6.2); RED CELL DISTRIBUTION WIDTH 14.7 % (9.0-15.0); WHITE BLOOD COUNT (AUTO) 6.4 K/uL (4.8-10.8)
[2018-11-13] MEDS: OMEPRAZOLE 20 MG CAPSULE.DR (PriLOSEC) PO SCH (06:39)
--- NOTE | 2018-11-13 07:01 | NUR ---
RN Note Patient is of the unit going to CT scan.
[2018-11-13 07:05] LABS: CALCIUM 8.8 mg/dL (8.4-11.0); POTASSIUM 3.6 mmol/L (3.5-5.1)
[2018-11-13 07:06] LABS: C-REACTIVE PROTEIN QUANT 0.6 mg/dL (0-0.5); CREATININE 0.59 mg/dL (0.55-1.30); THYROID STIMULATING HORMONE 0.69 uIu/mL (0.34-4.82)
--- NOTE | 2018-11-13 07:20 | NUR ---
RN Note Patient returned to the unit.
--- NOTE | 2018-11-13 07:55 | NUR ---
Opening Note Report received from [facility] shift nurse. Patient is currently awake and resting in bed. Patient has cerebral palsy and is contracted on BUE and has weakness on BLE. IV is on the LAC 20g, SL. Patient is due for an MRI of the brain today. Will continue to monitor.
[2018-11-13 08:00] VITALS: BP_SYST 107
[2018-11-13 08:32] LABS: ERYTHROCYTE SEDIMENTATION RATE 2 MM/HR (0-20)
--- NOTE | 2018-11-13 08:48 | NUR ---
PAGED DR MATIAS FOR ORDERS. SPOKE WITH MUNIR
[2018-11-13] MEDS: DICLOFENAC SODIUM 25 MG TABLET.DR PO SCH ×2 (09:30→23:13)
[2018-11-13] MEDS: ACETAMINOPHEN 325 MG TABLET PO PRN (09:31)
[2018-11-13] MEDS: LORazepam 1 MG TABLET PO PRN (10:26)
--- NOTE | 2018-11-13 10:53 | NUR ---
RN Note Patient is off the unit going to MRI.
--- NOTE | 2018-11-13 11:47 | NUR ---
RN Note Patient returned back to the unit in stable condition.
--- NOTE | 2018-11-13 12:45 | NUR ---
Rounds Assisted the patient to the restroom and back into bed.
[2018-11-13 13:31] VITALS: BP_SYST 149
[2018-11-13] MEDS ORDERED: traMADol HCL HCL 50 MG TABLET (ULTRAM) PO SCH (14:00)
[2018-11-13] MEDS: BACLOFEN 10 MG TABLET PO SCH ×2 (14:31→23:14)
--- NOTE | 2018-11-13 14:50 | NUR ---
Rounds Patient is currently resting in bed. Family is at the bedside.
[2018-11-13 16:08] VITALS: BP_SYST 118
--- NOTE | 2018-11-13 16:39 | NUR ---
Discharge Planning: DCP faxed to Félix Kumar (f [phone] p [phone]) DCP to follow up
--- NOTE | 2018-11-13 16:43 | NUR ---
MD Rounds Dr. Turner is examining the patient at the bedside.
[2018-11-13] MEDS ORDERED: MAGNESIUM OXIDE 400 MG TABLET PO ONE (16:45)
[2018-11-13] MEDS ORDERED: CHOLECALCIFEROL (VITAMIN D3) 2,000 UNIT TABLET PO ONE (16:45)
--- NOTE | 2018-11-13 17:01 | NUR ---
RN Note Patient is off the unit going to CT scan
[2018-11-13] MEDS: CALCIUM CARBONATE 500 MG/ TAB.CHEW PO SCH ×2 (17:03→23:13)
[2018-11-13] MEDS: HYDROcodone/ACETAMIN 5-325 MG TAB (NORCO/ VICODIN) PO PRN (17:04)
--- NOTE | 2018-11-13 17:20 | NUR ---
RN Note Patient returned to the unit.
--- NOTE | 2018-11-13 18:21 | NUR ---
Closing Note Patient is resting in bed. Med recon was done by Dr. Turner. Currently pending results from MRI brain from [facility]. [place] José rodriguez is pending. IV is on the LAC 20g, SL. Fall precautions are in place. Call light is within reach and in the lowest position. Will endorse care to the oncoming nurse.
[2018-11-13 21:00] VITALS: BP_SYST 128
--- NOTE | 2018-11-13 21:05 | NUR ---
INITIAL NOTES: BEDSIDE REPORT DONE WITH AM RN EARLY PART OF SHIFT. PATIENT AWAKE IN BED TURNING TO SIDES AND ARMS WITH INVOLUNTARY MOVEMENTS DUE TO CEREBRAL PALSY. ORIENTED X2 THIS TIME. FAMILIES AT BEDSIDE FOR SUPPORT.SALINE LOCK TL LFA PATENT. WRAPPED WITH GAUGE TO PREVENT PULLING OUT. SAFETY MEASURES DISCUSSED TO PATIENT AND FAMILIES WITH UNDERSTANDING. CALL LIGHT WITHIN REACH. BED IN LOW POSITION.WILL MONITOR CLOSELY.
--- NOTE | 2018-11-13 21:30 | NUR ---
ROUNDS: PATIENT CONTINUE TO SLEEP. BREATHING PATTERN REGULAR.
[2018-11-13] MEDS: traMADol HCL HCL 50 MG TABLET (ULTRAM) PO PRN (23:14)
[2018-11-13] MEDS: MAGNESIUM OXIDE 400 MG TABLET PO SCH (23:14)
--- NOTE | 2018-11-13 23:15 | NUR ---
MEDS ADMIN/VOID: WOKE PATIENT UP FOR MEDS TAKING. WOKE UP IN GOOD SPIRIT. TOOK ALL PO MEDS A WHOLE, NOT CRUSHED. SWALLOW REFLEX GOOD. ASPIRATION PRECAUTION OBSERVED. ASSISTED TO BSC TO VOID. FALL PRECAUTION OBSERVED.
[2018-11-14 00:23] VITALS: BP_SYST 125
--- NOTE | 2018-11-14 01:30 | NUR ---
ROUNDS/NUTRITION: SEEN ASBESTOS CLOTH INSPECTOR FEEDING PATIENT WITH CRACKERS WITH JUICE. PATIENT FEELS HUNGRY. TOLERATED WELL.
--- NOTE | 2018-11-14 02:55 | NUR ---
ROUNDS: PATIENT SLEEPING ON HER LEFT SIDE. CALL LIGHT WITHIN REACH.
--- NOTE | 2018-11-14 04:40 | NUR ---
PAIN/ ANXIETY/ VOID; COMPLAIN OF UPPER AND LOWER LEGS. NORCO AND ATIVAN PO GIVEN. ASSISTED TO BSC TO VOID. PUDDING GIVEN FOR SNACK.
[2018-11-14] MEDS: LORazepam 1 MG TABLET PO PRN (04:46)
[2018-11-14] MEDS: HYDROcodone/ACETAMIN 5-325 MG TAB (NORCO/ VICODIN) PO PRN (04:46)
--- NOTE | 2018-11-14 06:26 | NUR ---
CLOSING: NO ACUTE DISTRESS WHOLE SHIFT. PAIN FAIRLY CONTROLLED BY ULTRAM,VOLTAREN/ BACLOFEN/ NORCO PO. ANXIETY WITH ATIVAN. ASSISTED TO BSC TO URINATE DUE TO DUE TO CEREBRAL PALSY MOVEMENTS. BED ALARM ON AT ALL TIMES. FALL PRECAUTION OBSERVED. WILL ENDORSE CARE TO AM RN .
--- NOTE | 2018-11-14 07:07 | NUR ---
Nutrition Update Enrrique Scale 16 noted. Pt admitted for unsteady gait Diet: regular BMI: 22.8 kg/m2 RD to follow per nutrition care standards.
--- NOTE | 2018-11-14 07:55 | NUR ---
Opening Note Patient is currently resting in bed. No signs of distress noted at the moment. IV is on the LAC 20g, SL. Patient will be having an EEG today. Instructed the patient to use the call whenever in need of assistance. Patient verbalized understanding. Will continue to monitor.
[2018-11-14 08:00] VITALS: BP_SYST 119
[2018-11-14] MEDS: OMEPRAZOLE 20 MG CAPSULE.DR (PriLOSEC) PO SCH (08:58)
[2018-11-14] MEDS: CALCIUM CARBONATE 500 MG/ TAB.CHEW PO SCH ×2 (08:58→13:28)
[2018-11-14] MEDS: BACLOFEN 10 MG TABLET PO SCH ×2 (08:58→15:00)
[2018-11-14] MEDS: DICLOFENAC SODIUM 25 MG TABLET.DR PO SCH (08:58)
[2018-11-14] MEDS: MAGNESIUM OXIDE 400 MG TABLET PO SCH (08:58)
[2018-11-14] MEDS ORDERED: CHOLECALCIFEROL (VITAMIN D3) 2,000 UNIT TABLET PO SCH (09:00)
--- NOTE | 2018-11-14 10:37 | NUR ---
Rounds Patient is ambulating with PT and a walker.
--- NOTE | 2018-11-14 10:50 | NUR ---
Discharge planning: [facility] (f [phone] p [phone]) Rm 1231B, transport arranged [facility] ([phone]) 4:30pm P/U. Nurse made aware packet taken to nurses station.
--- NOTE | 2018-11-14 12:12 | NUR ---
DC PLANNING Order for [facility]. This am Gaby from [facility] came in to eval pt. Pt accepted to room 1231B after 4pm, #for report [phone] ext [phone], Dr Steven is following. Spoke w pt, brother Evan, mother & father @ bedside have already spoken w Gaby & are agreeable w dc to [facility], informed anticipated dc today. Per pt/family would like results of test done. Informed pt's nurse Nicol, pt accepted @ [facility] today & need dc order, also informed her pt/family would like to speak w Dr Turner results of testing done.
--- NOTE | 2018-11-14 12:30 | NUR ---
RN Note attempted to obtain MRI brain results from [facility]. However, MR stated that the patient never had an MRI of the brain.
[2018-11-14 12:37] VITALS: BP_SYST 138
--- NOTE | 2018-11-14 13:02 | NUR ---
RN note Dr. Turner examined the patient at the bedside. stated that the patient may be dc'd to [facility].
[2018-11-14] MEDS: traMADol HCL HCL 50 MG TABLET (ULTRAM) PO PRN (13:28)
[2018-11-14 14:39] VITALS: BP_SYST 119
--- NOTE | 2018-11-14 15:40 | NUR ---
RN Note Report given to Lynnette at [facility]. Patient will be going to room 1231 B. Relatives are aware of the transfer.
[2018-11-14 16:30] VITALS: BP_SYST 130
--- NOTE | 2018-11-14 17:14 | NUR ---
Transition of Care Patient given medication reconciliation form and D/C instructions. Exit Care provided. Patient verbalized understanding. MD discussed with patient the results and treatment provided. Ambulatory with a walker. Patient will be going to [facility]. Patient in stable condition, ID band removed. IV catheter removed, intact and dressing applied, no active bleeding. Patient educated on pain management. All belongings sent with patient.
== END 2018-11-14 17:16 | DRG 74 ==
LOC: SED 14:55 → SMU 19:06
PROVIDERS: ADMIT Internal Medicine; ATTEND Internal Medicine
DX: G62.9 Polyneuropathy, unspecified (principal); R26.81 Unsteadiness on feet; G80.9 Cerebral palsy, unspecified; M47.25 Other spondylosis with radiculopathy, thoracolumbar region; Z88.5 Allergy status to narcotic agent; Z88.1 Allergy status to other antibiotic agents; Z79.899 Other long term (current) drug therapy
CPT/HCPCS: 36415; 70450-TC; 71046-TC; 72128; 72131; 80048; 80053; 80061; 81000-TC; 82550-TC; 83605; 83655; 84443-TC; 84703; 85025; 85651-TC; 86060; 86140; 86710; 87040-TC; 95816; 96361; 96365; 96375; 97116-GP; 97530-GP; 99285; J1885; J1956; J7030

== ENCOUNTER 2020-03-18 17:50 | Emergency (ER) | payer OTHER, MEDICAID ==
[~2020-03-18] VITALS: Ht 167.6 cm; Wt 64.4 kg
[~2020-03-18 17:50] MED LIST changes: +ACET325T PO; -CHOL50004 PO; +ESCI10TA PO; -LEVO500T20 PO; +OMEP20CA15 PO; -OMEP40CA PO; +TRAM50TA2 PO; -TRAM50TA92 PO
[2020-03-18 17:56] VITALS: BP_SYST 120
[2020-03-18] MEDS ORDERED: IBUPROFEN 800 MG TABLET PO ONE (19:15)
[2020-03-18 21:22] VITALS: BP_SYST 122
== END 2020-03-18 21:22 | disposition home or self-care (01) ==
LOC: SED 17:50
DX: M79.671 Pain in right foot (principal); M54.5 Low back pain; M25.522 Pain in left elbow; Z88.0 Allergy status to penicillin; Z88.6 Allergy status to analgesic agent; Z79.899 Other long term (current) drug therapy; W18.39XA Other fall on same level, initial encounter; Y93.89 Activity, other specified; Y92.89 Other specified places as the place of occurrence of the external cause; Y99.8 Other external cause status
CPT/HCPCS: 72100-TC; 99284

== ENCOUNTER 2020-11-02 20:47 | Emergency (ER) | payer BC, MEDICAID ==
[~2020-11-02] VITALS: Ht 167.6 cm; Wt 63.5 kg
[2020-11-02 21:00] VITALS: BP_SYST 121
[2020-11-02] MEDS ORDERED: KETOROLAC TROMETHAMINE 60 MG/2 ML VIAL IM ONE (23:15)
[2020-11-02 23:57] VITALS: BP_SYST 121
== END 2020-11-02 23:57 | disposition home or self-care (01) ==
LOC: SED 20:47
DX: S42.401A Unspecified fracture of lower end of right humerus, initial encounter for closed fracture (principal); Z88.5 Allergy status to narcotic agent; Z88.0 Allergy status to penicillin; Z79.899 Other long term (current) drug therapy; W18.39XA Other fall on same level, initial encounter; Y93.89 Activity, other specified; Y92.89 Other specified places as the place of occurrence of the external cause; Y99.8 Other external cause status
CPT/HCPCS: 29105; 73080; 96372; 99283; J1885

== ENCOUNTER 2021-03-29 18:49 | Emergency (ER) | payer BC, MEDICAID ==
[~2021-03-29] VITALS: Ht 167.6 cm; Wt 62.6 kg
[2021-03-29 19:16] VITALS: BP_SYST 116
--- NOTE | 2021-03-29 19:42 | NUR ---
ER Dr. Westfall at triage examining patient.
[2021-03-29] MEDS ORDERED: LORazepam 1 MG TABLET PO ONE (20:00)
[2021-03-29] MEDS ORDERED: KETOROLAC TROMETHAMINE 60 MG/2 ML VIAL IM ONE (20:00)
--- NOTE | 2021-03-29 20:42 | NUR ---
Returned from radiology, back to [facility].
--- NOTE | 2021-03-29 20:43 | NUR ---
Patient BIB by family from home. C/O neck pain x 2 weeks, Patient reported, neck pain for 2 weeks, Hx Neck Sx (C3-5 plate), A/O,X4, neck pain, pain rate 10/10.
[2021-03-29 21:16] LABS: BASOPHILS # (AUTO) 0.1 K/uL (0.0-0.2); BASOPHILS % (AUTO) 0.8 % (0.0-2.0); EOSINOPHILS # (AUTO) 0.2 K/uL (0.0-0.4); EOSINOPHILS % (AUTO) 2.5 % (0.0-4.0); HEMATOCRIT 34.6 % (36-48); HEMOGLOBIN 11.8 g/dL (12.0-16.0); LYMPHOCYTES # (AUTO) 1.2 K/uL (1.0-5.5); LYMPHOCYTES % (AUTO) 18.4 % (20.5-51.5); MEAN CORPUSCULAR HEMOGLOBIN 31 pg (27-31); MEAN CORPUSCULAR HGB CONC 34 % (32-36); MEAN CORPUSCULAR VOLUME 90 fL (79.0-98.0); MONOCYTES # (AUTO) 0.5 K/uL (0.0-1.0); MONOCYTES % (AUTO) 8.3 % (1.7-9.3); NEUTROPHILS # (AUTO) 4.6 K/uL (1.8-7.7); PLATELET COUNT (AUTO) 220 K/uL (130-430); RED BLOOD CELL COUNT(AUTO) 3.83 MIL/uL (4.2-6.2); RED CELL DISTRIBUTION WIDTH 12.9 % (9.0-15.0); WHITE BLOOD COUNT (AUTO) 6.5 K/uL (4.8-10.8)
[2021-03-29 21:33] LABS: ANION GAP 7 (5-15); CALCIUM 8.6 mg/dL (8.4-11.0); CHLORIDE 103 mmol/L (98-107); CREATININE 0.65 mg/dL (0.55-1.30); GLUCOSE 86 mg/dL (70-99); POTASSIUM 3.5 mmol/L (3.5-5.1); SODIUM SERUM 139 mmol/L (136-145); UREA NITROGEN, BLOOD 14 mg/dL (8-21)
[2021-03-29 21:39] LABS: ALANINE AMINOTRANSFERASE 28 U/L (12-78); ALBUMIN 3.8 g/dL (3.4-4.8); ASPARTATE AMINOTRANSFERASE 23 U/L (10-37); TOTAL BILIRUBIN 0.3 mg/dL (0.0-1.0)
[2021-03-29 21:47] LABS: GFR AFRICAN AMERICAN 125 mL/min (>90)
[2021-03-29] MEDS ORDERED: IBUP-1969 PO (21:54)
[2021-03-29] MEDS ORDERED: HYDR-3917 PO (21:54)
[2021-03-29] MEDS ORDERED: MORPHINE 4 MG INJ. 4 MG/ML VIAL IM ONE (22:00)
[2021-03-29] MEDS ORDERED: MORPHINE 4 MG INJ. 4 MG/ML VIAL ONE (22:05)
[2021-03-29 22:29] VITALS: BP_SYST 116
--- NOTE | 2021-03-29 22:30 | NUR ---
Patient given written and verbal discharge instructions and verbalizes understanding. ER MD discussed with patient the results and treatment provided. Patient in stable condition. ID arm band removed. Rx of Hydrocodone/ Ibuprofen given. Patient educated on pain management and to follow up with PMD. Pain Scale 2/10 tolerable for patient . Opportunity for questions provided and answered. Medication side effect fact sheet provided.
[2021-03-29 22:56] LABS: C-REACTIVE PROTEIN QUANT < 0.2 mg/dL (0-0.5)
== END 2021-03-29 22:29 | disposition home or self-care (01) ==
LOC: SED 18:49
DX: M46.92 Unspecified inflammatory spondylopathy, cervical region (principal); Z88.0 Allergy status to penicillin; Z88.5 Allergy status to narcotic agent; Z79.899 Other long term (current) drug therapy
CPT/HCPCS: 36415; 72125; 76376; 80053; 85025; 86140; 96372; 99284; J1885; J2270

== ENCOUNTER 2021-06-16 15:38 | Emergency (ER) | payer OTHER, MEDICAID ==
[~2021-06-16] VITALS: Ht 167.6 cm; Wt 59.0 kg
[~2021-06-16 15:38] MED LIST changes: +HYDR-3917 PO; +IBUP-1969 PO
[2021-06-16 16:15] VITALS: BP_SYST 127
--- NOTE | 2021-06-16 16:15 | NUR ---
Pt. bib sister with c/o cough and body aches since yesterday, is concerned because boyfriend has covid, pt. is vaccinated but had Cerebral Palsy
[2021-06-16] MEDS ORDERED: IBUPROFEN 600 MG TABLET PO ONE (17:30)
--- NOTE | 2021-06-16 17:41 | NUR ---
LIBORIO Shen in tent examining patient.
--- NOTE | 2021-06-16 18:29 | NUR ---
chest xray done
[2021-06-16] MEDS ORDERED: CASIRIVIMAB 600 MG, IMDEVIMAB 600 MG in NS 250 ML IV ONE (19:00)
--- NOTE | 2021-06-16 19:56 | NUR ---
PATIENT MOVED TO BED 5
[2021-06-16 20:03] LABS: CALCIUM 8.7 mg/dL (8.4-11.0); CREATININE 0.62 mg/dL (0.55-1.30)
[2021-06-16 20:09] LABS: ALBUMIN 3.9 g/dL (3.4-4.8); TOTAL BILIRUBIN 0.2 mg/dL (0.0-1.0)
[2021-06-16 20:22] LABS: HEMATOCRIT 34.4 % (36-48); HEMOGLOBIN 11.7 g/dL (12.0-16.0); MEAN CORPUSCULAR HEMOGLOBIN 30 pg (27-31); MEAN CORPUSCULAR HGB CONC 34 % (32-36); MEAN CORPUSCULAR VOLUME 88 fL (79.0-98.0); PLATELET COUNT (AUTO) 232 K/uL (130-430); RED CELL DISTRIBUTION WIDTH 12.9 % (9.0-15.0); WHITE BLOOD COUNT (AUTO) 5.7 K/uL (4.8-10.8)
--- NOTE | 2021-06-16 21:00 | NUR ---
pt started on iv antibody treatment. pt signed consent form and given reading matrerial about it
--- NOTE | 2021-06-16 22:20 | NUR ---
pt completed treatment. observation for one hour.
[2021-06-16] MEDS ORDERED: ACETAMINOPHEN 500 MG TABLET ONE (22:51)
[2021-06-16] MEDS ORDERED: ACETAMINOPHEN 500 MG TABLET PO ONE (23:00)
--- NOTE | 2021-06-16 23:30 | NUR ---
pt observed with no obvuious reaction.
[2021-06-17 00:04] VITALS: BP_SYST 126
== END 2021-06-16 16:15 | disposition home or self-care (01) ==
LOC: SED 15:38
DX: U07.1 COVID-19 (principal); G80.9 Cerebral palsy, unspecified; Z88.0 Allergy status to penicillin; Z88.5 Allergy status to narcotic agent; Z79.899 Other long term (current) drug therapy
CPT/HCPCS: 36415; 71045; 80053; 83051; 85014; 85048; 85049; 87426; 99284; C9803; J7050; M0243; Q0243; U0003

== ENCOUNTER 2022-09-22 21:03 | Emergency (ER) | payer OTHER, MEDICAID ==
[~2022-09-22] VITALS: Ht 167.6 cm; Wt 56.7 kg
[2022-09-22 21:09] VITALS: BP_SYST 139
[2022-09-22] MEDS ORDERED: LIDO1ADH71 TD (21:29)
[2022-09-22] MEDS ORDERED: DOXY100C5 PO (21:29)
[2022-09-22] MEDS ORDERED: HYDROcodone/ACETAMIN 5-325 MG TAB (NORCO/ VICODIN) PO ONE (21:30)
[2022-09-22 22:32] VITALS: BP_SYST 139
== END 2022-09-22 22:32 | disposition home or self-care (01) ==
LOC: SED 21:03
DX: S10.96XA Insect bite of unspecified part of neck, initial encounter (principal); Z88.0 Allergy status to penicillin; Z88.5 Allergy status to narcotic agent; Z79.899 Other long term (current) drug therapy; W57.XXXA Bitten or stung by nonvenomous insect and other nonvenomous arthropods, initial encounter; Y93.89 Activity, other specified; Y92.89 Other specified places as the place of occurrence of the external cause; Y99.8 Other external cause status
CPT/HCPCS: 99283

== ENCOUNTER 2023-11-14 18:41 | Emergency (ER) | payer OTHER, MEDICAID ==
[~2023-11-14] VITALS: Ht 167.6 cm; Wt 58.1 kg
[~2023-11-14 18:41] MED LIST changes: +DOXY100C5 PO; +LIDO1ADH71 TD
[2023-11-14 19:09] VITALS: BP_SYST 115; PULSE 95; RESP 16; TEMP 96.9; O2SAT 95
[2023-11-14] MEDS ORDERED: OXYC-128 PO (21:34)
== END 2023-11-14 21:53 | disposition home or self-care (01) ==
LOC: SED 18:41
DX: S33.8XXA Sprain of other parts of lumbar spine and pelvis, initial encounter (principal); Z88.0 Allergy status to penicillin; Z88.5 Allergy status to narcotic agent; Z79.899 Other long term (current) drug therapy; Z79.2 Long term (current) use of antibiotics; W18.39XA Other fall on same level, initial encounter; Y93.89 Activity, other specified; Y92.89 Other specified places as the place of occurrence of the external cause; Y99.8 Other external cause status
CPT/HCPCS: 72100; 72220; 99284

== ENCOUNTER 2023-12-19 01:12 | Emergency (ER) | payer OTHER, MEDICAID ==
[~2023-12-19] VITALS: Ht 167.6 cm; Wt 55.8 kg
[~2023-12-19 01:12] MED LIST changes: +OXYC-128 PO
[2023-12-19 01:23] VITALS: BP_SYST 115; PULSE 81; RESP 18; TEMP 97.6; O2SAT 97
[2023-12-19] MEDS ORDERED: MORPHINE 4 MG INJ. 4 MG/ML VIAL ONE (01:49)
[2023-12-19] MEDS: MORPHINE 4 MG INJ. 4 MG/ML VIAL IM ONE (01:51)
[2023-12-19] MEDS: MORPHINE 4 MG INJ. 4 MG/ML VIAL IVP ONE (03:12)
[2023-12-19] MEDS ORDERED: DIPHENHYDRAMINE INJ 50 MG/ML VIAL ONE (03:21)
[2023-12-19] MEDS: DIPHENHYDRAMINE INJ 50 MG/ML VIAL IVP ONE (03:26)
[2023-12-19 03:54] VITALS: BP_SYST 149; PULSE 81; RESP 18; TEMP 97.6; O2SAT 97
== END 2023-12-19 03:54 | disposition home or self-care (01) ==
LOC: SED 01:12
DX: M43.6 Torticollis (principal); Z88.0 Allergy status to penicillin; Z88.5 Allergy status to narcotic agent; Z79.899 Other long term (current) drug therapy
CPT/HCPCS: 99284; 96374; 96375; 96372; J1200; J2270

== ENCOUNTER 2024-01-07 19:02 | Emergency (ER) | payer OTHER, MEDICAID ==
[~2024-01-07] VITALS: Ht 167.6 cm; Wt 54.4 kg
[2024-01-07 19:27] VITALS: BP_SYST 148; PULSE 80; RESP 16; TEMP 96.8; O2SAT 97
[2024-01-07 20:18] LABS: BASOPHILS % (AUTO) 0.1 % (0.0-2.0); HEMATOCRIT 33.7 % (36-48); HEMOGLOBIN 11.5 g/dL (12.0-16.0); LYMPHOCYTES # (AUTO) 0.6 K/uL (1.0-5.5); LYMPHOCYTES % (AUTO) 4.7 % (20.5-51.5); MEAN CORPUSCULAR HEMOGLOBIN 30 pg (27-31); MEAN CORPUSCULAR HGB CONC 34 % (32-36); MEAN CORPUSCULAR VOLUME 88 fL (79.0-98.0); MONOCYTES # (AUTO) 0.8 K/uL (0.0-1.0); NEUTROPHILS # (AUTO) 12.2 K/uL (1.8-7.7); NEUTROPHILS % (AUTO) 89.2 % (40.0-70.0); PLATELET COUNT (AUTO) 290 K/uL (130-430); RED BLOOD CELL COUNT(AUTO) 3.82 MIL/uL (4.2-6.2); WHITE BLOOD COUNT (AUTO) 13.6 K/uL (4.8-10.8)
[2024-01-07 20:38] LABS: CALCIUM 9.4 mg/dL (8.4-11.0); CREATININE 0.65 mg/dL (0.55-1.30); POTASSIUM 3.8 mmol/L (3.5-5.1)
[2024-01-07 21:30] VITALS: BP_SYST 148; PULSE 80; RESP 16; TEMP 96.8; O2SAT 97
== END 2024-01-07 21:30 | disposition home or self-care (01) ==
LOC: SED 19:02
DX: T78.40XA Allergy, unspecified, initial encounter (principal); L53.8 Other specified erythematous conditions; Z88.0 Allergy status to penicillin; Z88.5 Allergy status to narcotic agent; Z79.899 Other long term (current) drug therapy; Z79.2 Long term (current) use of antibiotics; X58.XXXA Exposure to other specified factors, initial encounter
CPT/HCPCS: 36415; 71045; 80048; 85025; 99284

== ENCOUNTER 2024-01-30 23:07 | Emergency (ER) | payer OTHER, MEDICAID ==
[~2024-01-30] VITALS: Ht 167.6 cm; Wt 54.4 kg
[2024-01-30 23:33] VITALS: BP_SYST 150; PULSE 101; RESP 20; TEMP 97.8; O2SAT 97
[2024-01-31 01:35] VITALS: TEMP 97.9
[2024-01-31] MEDS: KETOROLAC TROMETHAMINE 30 MG VIAL IM ONE (02:35)
[2024-01-31] MEDS: OXYCODONE/ACETAMINOPHEN 5-325 TABLET PO ONE (02:36)
[2024-01-31] MEDS ORDERED: IBUP-1969 PO (03:07)
[2024-01-31] MEDS ORDERED: OXYC-128 PO (03:07)
[2024-01-31 03:36] VITALS: BP_SYST 136; PULSE 88; RESP 18; O2SAT 97
== END 2024-01-31 03:35 | disposition home or self-care (01) ==
LOC: SED 23:07
DX: G89.29 Other chronic pain (principal); M79.18 Myalgia, other site; M79.641 Pain in right hand; M54.2 Cervicalgia; Z88.0 Allergy status to penicillin; Z88.5 Allergy status to narcotic agent; Z79.899 Other long term (current) drug therapy; Z79.2 Long term (current) use of antibiotics
CPT/HCPCS: 99283; 96372; J1885

== ENCOUNTER 2024-02-12 15:26 | Inpatient (IN) | payer OTHER, MEDICAID ==
[~2024-02-12] VITALS: Ht 167.6 cm; Wt 56.4 kg
[2024-02-12 15:29] VITALS: BP_SYST 134; PULSE 110; RESP 18; TEMP 97.5; O2SAT 97
[2024-02-12 16:14] LABS: HEMATOCRIT 37.3 % (36-48); HEMOGLOBIN 12.6 g/dL (12.0-16.0); MEAN CORPUSCULAR HEMOGLOBIN 30 pg (27-31); MEAN CORPUSCULAR HGB CONC 34 % (32-36); MEAN CORPUSCULAR VOLUME 89 fL (79.0-98.0); PLATELET COUNT (AUTO) 348 K/uL (130-430); RED CELL DISTRIBUTION WIDTH 14.3 % (9.0-15.0)
[2024-02-12 16:18] LABS: WHITE BLOOD COUNT (AUTO) 20.5 K/uL (4.8-10.8)
[2024-02-12 16:32] LABS: BAND % (MANUAL) 2 % (0-6); BASOPHILS % (MANUAL) 0 % (0-2); EOSINOPHILS % (MANUAL) 0 % (0-7); LYMPHOCYTES % (MANUAL) 3 % (20-46); MONOCYTES % (MANUAL) 4 % (0-11); PLATELET ESTIMATE ADEQUATE (ADEQUATE)
[2024-02-12 16:39] LABS: CALCIUM 9.2 mg/dL (8.4-11.0); CREATININE 0.49 mg/dL (0.55-1.30); POTASSIUM 3.8 mmol/L (3.5-5.1)
[2024-02-12] MEDS: NACL 0.9% 1,000 ML IV ONE (17:36)
[2024-02-12 17:40] LABS: BILIRUBIN,URINE NEGATIVE (NEGATIVE); CLARITY/URINE CLEAR (CLEAR); COLOR,URINE YELLOW (YELLOW); GLUCOSE,URINE NEGATIVE (NEGATIVE); KETONES,URINE NEGATIVE (NEGATIVE); LEUKOCYTE ESTERASE ,URINE NEGATIVE (NEGATIVE); NITRITE, URINE NEGATIVE (NEGATIVE); PH,URINE 6.5 (5.0-8.0); PROTEIN URINE NEGATIVE (NEGATIVE)
[2024-02-12 17:41] LABS: BLOOD, URINE TRACE (NEGATIVE)
[2024-02-12 17:46] LABS: BACTERIA,URINE RARE /HPF (None Seen); MUCUS,URINE None Seen /LPF (None Seen); RBC,URINE 0-3 /HPF (0-3); WBC,URINE 0-3 /HPF (0-3)
[2024-02-12] MEDS: BISACODYL 10 MG/SUPPOSITORY RC ONE (18:20)
[2024-02-12] MEDS: LACTULOSE 20 GM/30 ML UDC PO ONE (18:26)
[2024-02-12] MEDS ORDERED: ONDANSETRON HCL 4 MG/2 ML VIAL IVP PRN (19:15)
[2024-02-12] MEDS ORDERED: METOCLOPRAMIDE HCL 10 MG/2 ML VIAL IVP PRN (19:15)
[2024-02-12] MEDS ORDERED: ACETAMINOPHEN 325 MG TABLET PO PRN ×2 (19:15)
[2024-02-12] MEDS ORDERED: NON-FORMULARY MEDICATION (Naproxen 500 MG) PO SCH (21:00)
[2024-02-12] MEDS ORDERED: oxyCODONE HCL 10 MG TAB.ER.12H PO ONE (21:39)
[2024-02-12] MEDS: traMADol HCL HCL 50 MG TABLET (ULTRAM) PO SCH (22:00)
[2024-02-12] MEDS: oxyCODONE HCL 10 MG TAB.ER.12H PO ONE (22:03)
[2024-02-12] MEDS: LORazepam 2 MG/ML VIAL IVP PRN (22:09)
[2024-02-12] MEDS: DOXYCYCLINE HYCLATE 100 MG TABLET PO SCH (22:26)
[2024-02-12] MEDS: D5LR 1,000 ML IV SCH (22:26)
[2024-02-12] MEDS: metroNIDAZOLE 500 mg/NS 100 ML IV SCH (22:27)
[2024-02-12 23:30] VITALS: BP_SYST 149; PULSE 136; RESP 18; TEMP 99
[2024-02-13] VITALS (7 sets, daily range): BP systolic 114–138; PULSE 86–105; RESP 12–20; TEMP 98.5–99.9; O2SAT 94–98
[2024-02-13] MEDS: DOCUSATE SODIUM 250 MG CAPSULE PO SCH (00:06)
[2024-02-13] MEDS: METOPROLOL TARTRATE 50 MG TABLET PO ONE (00:07)
[2024-02-13] MEDS: metroNIDAZOLE 500 mg/NS 100 ML IV ONE (01:20)
[2024-02-13] MEDS: OXYCODONE/ACETAMINOPHEN *10*mg/325 mg TABLET PO PRN ×2 (04:24→16:08)
[2024-02-13 07:41] LABS: BASOPHILS % (AUTO) 0.2 % (0.0-2.0); HEMATOCRIT 31.6 % (36-48); HEMOGLOBIN 10.7 g/dL (12.0-16.0); LYMPHOCYTES # (AUTO) 0.4 K/uL (1.0-5.5); LYMPHOCYTES % (AUTO) 3.4 % (20.5-51.5); MEAN CORPUSCULAR HEMOGLOBIN 30 pg (27-31); MEAN CORPUSCULAR HGB CONC 34 % (32-36); MEAN CORPUSCULAR VOLUME 90 fL (79.0-98.0); MONOCYTES % (AUTO) 8.6 % (1.7-9.3); NEUTROPHILS # (AUTO) 10.4 K/uL (1.8-7.7); PLATELET COUNT (AUTO) 303 K/uL (130-430); RED BLOOD CELL COUNT(AUTO) 3.52 MIL/uL (4.2-6.2); RED CELL DISTRIBUTION WIDTH 14.4 % (9.0-15.0); WHITE BLOOD COUNT (AUTO) 11.8 K/uL (4.8-10.8)
[2024-02-13 08:05] LABS: NEUTROPHILS % (AUTO) 87.8 % (40.0-70.0)
[2024-02-13 08:20] LABS: ALBUMIN 2.9 g/dL (3.4-4.8); CREATININE 0.54 mg/dL (0.55-1.30); POTASSIUM 3.8 mmol/L (3.5-5.1); TOTAL BILIRUBIN 0.4 mg/dL (0.0-1.0)
[2024-02-13] MEDS ORDERED: ESCITALOPRAM OXALATE 10 MG TABLET PO SCH (09:00)
[2024-02-13] MEDS ORDERED: NON-FORMULARY MEDICATION (Lidocaine (Lidocaine Pain Relief) 1 PATCH) TD SCH (09:00)
[2024-02-13] MEDS ORDERED: OMEPRAZOLE Non-Formulary 20 MG CAPSULE.DR PO SCH (09:00)
[2024-02-13] MEDS: NAPROXEN 250 MG TABLET PO SCH (09:04)
[2024-02-13] MEDS: CITALOPRAM HYDROBROMIDE 20 MG TABLET PO SCH (09:06)
[2024-02-13] MEDS: LIDOCAINE PATCH 5% 1 EA TP SCH (09:06)
[2024-02-13] MEDS: PANTOPRAZOLE SODIUM 40 MG TAB PO SCH (09:06)
[2024-02-13] MEDS: METOPROLOL TARTRATE 25 MG TABLET PO SCH (09:07)
[2024-02-14] VITALS: BP_SYST 129; PULSE 84; RESP 18; TEMP 99; O2SAT 99
[2024-02-14] MEDS: TEMAZEPAM 15 MG CAPSULE PO PRN (00:52)
[2024-02-14 07:21] LABS: BASOPHILS % (AUTO) 0.4 % (0.0-2.0); EOSINOPHILS % (AUTO) 0.2 % (0.0-4.0); HEMATOCRIT 31.9 % (36-48); HEMOGLOBIN 10.7 g/dL (12.0-16.0); LYMPHOCYTES # (AUTO) 0.9 K/uL (1.0-5.5); LYMPHOCYTES % (AUTO) 11.8 % (20.5-51.5); MEAN CORPUSCULAR HEMOGLOBIN 30 pg (27-31); MEAN CORPUSCULAR HGB CONC 34 % (32-36); MEAN CORPUSCULAR VOLUME 90 fL (79.0-98.0); MONOCYTES % (AUTO) 13.3 % (1.7-9.3); NEUTROPHILS # (AUTO) 5.9 K/uL (1.8-7.7); PLATELET COUNT (AUTO) 264 K/uL (130-430); RED BLOOD CELL COUNT(AUTO) 3.55 MIL/uL (4.2-6.2); RED CELL DISTRIBUTION WIDTH 14.2 % (9.0-15.0); WHITE BLOOD COUNT (AUTO) 7.9 K/uL (4.8-10.8)
[2024-02-14 07:29] LABS: CREATININE 0.56 mg/dL (0.55-1.30); POTASSIUM 3.7 mmol/L (3.5-5.1)
[2024-02-14 07:51] LABS: NEUTROPHILS % (AUTO) 74.3 % (40.0-70.0)
[2024-02-14 08:00] VITALS: BP_SYST 134; PULSE 88; RESP 16; TEMP 98.2; O2SAT 98
[2024-02-14 11:11] VITALS: BP_SYST 114; PULSE 88; RESP 16; TEMP 98.8; O2SAT 96
[2024-02-14 16:00] VITALS: BP_SYST 128; PULSE 96; RESP 22; TEMP 99; O2SAT 95
[2024-02-14 20:00] VITALS: BP_SYST 125; PULSE 107; RESP 20; TEMP 97.7; O2SAT 98
[2024-02-14 22:50] VITALS: O2SAT 98
[2024-02-14] MEDS: KETOROLAC TROMETHAMINE 15 MG VIAL IVP PRN (23:59)
[2024-02-15] VITALS (8 sets, daily range): BP systolic 109–133; PULSE 86–106; RESP 16–18; TEMP 97.4–99.4; O2SAT 93–97
[2024-02-15 07:11] LABS: BASOPHILS % (AUTO) 0.2 % (0.0-2.0); EOSINOPHILS % (AUTO) 0.1 % (0.0-4.0); HEMATOCRIT 33.2 % (36-48); HEMOGLOBIN 11.4 g/dL (12.0-16.0); LYMPHOCYTES # (AUTO) 1.1 K/uL (1.0-5.5); LYMPHOCYTES % (AUTO) 12.2 % (20.5-51.5); MEAN CORPUSCULAR HEMOGLOBIN 31 pg (27-31); MEAN CORPUSCULAR HGB CONC 34 % (32-36); MEAN CORPUSCULAR VOLUME 90 fL (79.0-98.0); MONOCYTES # (AUTO) 0.9 K/uL (0.0-1.0); MONOCYTES % (AUTO) 10.4 % (1.7-9.3); NEUTROPHILS % (AUTO) 77.1 % (40.0-70.0); PLATELET COUNT (AUTO) 291 K/uL (130-430); RED BLOOD CELL COUNT(AUTO) 3.71 MIL/uL (4.2-6.2); RED CELL DISTRIBUTION WIDTH 14.1 % (9.0-15.0)
[2024-02-15 08:15] LABS: CALCIUM 9.2 mg/dL (8.4-11.0); CREATININE 0.68 mg/dL (0.55-1.30); POTASSIUM 3.7 mmol/L (3.5-5.1); TOTAL BILIRUBIN 0.5 mg/dL (0.0-1.0); TOTAL PROTEIN, SERUM 6.2 g/dL (6.4-8.3)
[2024-02-16] VITALS (7 sets, daily range): BP systolic 120–145; PULSE 86–103; RESP 17–20; TEMP 97.1–99; O2SAT 93–99
[2024-02-16] MEDS: ACETAMINOPHEN 325 MG TABLET PO PRN (09:57)
[2024-02-16] MEDS: LUBIPROSTONE 24 MCG CAPSULE PO ONE (12:24)
[2024-02-16] MEDS ORDERED: LEVO-62 PO (18:17)
[2024-02-16] MEDS ORDERED: METR-343 PO (18:19)
[2024-02-16] MEDS ORDERED: LUBI24CA5 PO (18:21)
[2024-02-16] MEDS ORDERED: LACT1CAP69 PO (18:23)
[2024-02-16] MEDS: LUBIPROSTONE 24 MCG CAPSULE PO SCH (22:17)
[2024-02-17 00:58] VITALS: BP_SYST 116; PULSE 108; RESP 18; TEMP 97.6; O2SAT 98
[2024-02-17 07:57] VITALS: BP_SYST 128; PULSE 92; RESP 18; TEMP 98; O2SAT 98
[2024-02-17 09:30] VITALS: O2SAT 98
[2024-02-17 12:52] VITALS: BP_SYST 121; PULSE 101; RESP 17; TEMP 97.8; O2SAT 97
[2024-02-17 16:30] VITALS: BP_SYST 127; PULSE 95; RESP 18; TEMP 97.9; O2SAT 98
[2024-02-17 19:44] VITALS: BP_SYST 98; PULSE 118; PULSE 92; RESP 18; TEMP 97.5; TEMP 97.6; O2SAT 82; O2SAT 86
[2024-02-17] MEDS: BACLOFEN 10 MG TABLET PO SCH (20:08)
== END 2024-02-17 21:10 | DRG 872 ==
LOC: SED 15:26 → STU 17:33 → SMU 02-15 14:01
PROVIDERS: ADMIT Internal Medicine; ATTEND Internal Medicine
DX: A41.9 Sepsis, unspecified organism (principal); G80.1 Spastic diplegic cerebral palsy; K56.7 Ileus, unspecified; E44.1 Mild protein-calorie malnutrition; F11.20 Opioid dependence, uncomplicated; M47.816 Spondylosis without myelopathy or radiculopathy, lumbar region; M47.814 Spondylosis without myelopathy or radiculopathy, thoracic region; K52.9 Noninfective gastroenteritis and colitis, unspecified; D64.9 Anemia, unspecified; G89.29 Other chronic pain; K76.0 Fatty (change of) liver, not elsewhere classified; G62.9 Polyneuropathy, unspecified; Z88.5 Allergy status to narcotic agent; Z88.0 Allergy status to penicillin; Z79.899 Other long term (current) drug therapy; Z79.1 Long term (current) use of non-steroidal anti-inflammatories (NSAID); Z68.20 Body mass index [BMI] 20.0-20.9, adult
CPT/HCPCS: 36415; 74018; 80048; 80053; 81000; 81001; 81015; 83605; 85007; 85025; 85027; 87040; 97112-GP; 97530-GP; 99285; G0378; J1885; J1956; J2060; J3490